=== PATIENT | female | born 1955 | race Two or more races ===

== ENCOUNTER → 2019-12-29 08:38 | Outpatient (BNVA) | payer MEDICARE, MEDICAID, SELFPAY | PROVIDERS: Visit Provider Hospitalist | DX: J45.40 Moderate persistent asthma, uncomplicated (principal) | CPT/HCPCS: 99214 ==

== ENCOUNTER 2020-01-18 09:25 | Outpatient (REF) | payer MEDICARE, MEDICAID, SELFPAY ==
--- NOTE | 2020-01-18 12:22 | PFT_ITS ---
FLOWS: FEV1 84% of predicted at 1.94 L. FVC 74% of predicted at 2.21 L. FEV1 to FVC ratio of 0.88. No bronchodilator response. LUNG VOLUMES: Total lung capacity 75% of predicted at 3.57 L. Residual volume 68% of predicted at 1.33 L. Slow vital capacity 79% of predicted at 2.23 L. Expiratory reserve volume 8% of predicted at 0.06 L. Diffusion capacity is normal. In comparison to pulmonary function test performed in October of 2018, FEV1 has been without significant changes; FVC has increased by 0.15 L; total lung capacity has increased by 0.69 L; residual volume has increased by 0.55 L; slow vital capacity has been without significant changes; expiratory reserve volume has been without significant changes; diffusion capacity has increased by 0.55 mL/minute/mmHg. IMPRESSION: Mild to moderate restrictive ventilatory defect with no bronchodilator response. This test result can be observed in lung parenchymal disease. Clinical correlation is suggested. MD SANDRA Reyes/ERMELINDAL / [id number]
== END 2020-01-18 09:26 | disposition home or self-care (01) ==
LOC: HO.RESP 09:25
PROVIDERS: Visit Provider Hospitalist
DX: J45.40 Moderate persistent asthma, uncomplicated (principal)
CPT/HCPCS: 94060; 94727; 94729

== ENCOUNTER 2020-05-29 11:51 | Outpatient (REF) | payer MEDICARE, MEDICAID, SELFPAY ==
--- NOTE | ~2020-05-29 | MM_ITS ---
EXAMINATION: MM SCREENING DIGITAL BREAST TOMOSYNTHESIS, BILATERAL CLINICAL INFORMATION: Screening. Asymptomatic. The lifetime risk of breast cancer based on the Tyrer-Cuzick Model is 4%. COMPARISON: Mammography: 09/03/2019, 08/18/2018, 01/08/2018 TECHNIQUE: Digital breast tomosynthesis is performed in both the craniocaudal and mediolateral oblique views along with computer-aided detection (CAD). Synthesized 2D images are generated from the tomosynthesis. FINDINGS: There are scattered areas of fibroglandular density (ACR BI-RADS breast composition Category b). There are no significant masses, abnormal calcifications, or other abnormalities. Parenchymal pattern is similar to prior studies. There are incidental intramammary nodes again seen posterior central right breast. The axilla and skin contours are unremarkable. MM/MM tomosynthesis screening BI IMPRESSION: No mammographic evidence of malignancy. ASSESSMENT: BI-RADS 2: Benign RECOMMENDATION: Routine annual mammography screening. This patient's information was entered into a reminder system with a target due date for their next mammogram.
== END 2020-05-29 11:52 | disposition home or self-care (01) ==
LOC: HO.MAMMO 11:51
PROVIDERS: PCP Registered Nurse Community Health; Visit Provider Registered Nurse Community Health
DX: Z12.31 Encounter for screening mammogram for malignant neoplasm of breast (principal)
CPT/HCPCS: 77063; 77067

== ENCOUNTER → 2020-09-25 09:01 | Outpatient (BNVA) | payer MEDICARE, MEDICAID, SELFPAY | PROVIDERS: PCP Registered Nurse Community Health; Visit Provider Hospitalist | DX: J30.9 Allergic rhinitis, unspecified (principal); J45.40 Moderate persistent asthma, uncomplicated | CPT/HCPCS: 99212 ==

== ENCOUNTER → 2020-10-12 09:26 | Outpatient (BNVA) | payer MEDICARE, MEDICAID, SELFPAY | PROVIDERS: PCP Registered Nurse Community Health; Referring Provider Registered Nurse Community Health; Visit Provider Nurse Practitioner Family | DX: Z12.11 Encounter for screening for malignant neoplasm of colon (principal); K21.9 Gastro-esophageal reflux disease without esophagitis | CPT/HCPCS: 99202 ==

== ENCOUNTER 2020-11-05 10:23 | Day surgery (SDC) | payer MEDICARE, MEDICAID, SELFPAY ==
[2020-10-29 13:22] VITALS: BMI 35.3
--- NOTE | 2020-11-02 08:40 | HO.ANESPROP2 ---
Documented by User: Alexia Love NP 11/02/20 12:57 HPI - Anesthesia Eval Consult details Narrative: 64yo F for Upper Endoscopy and Colonoscopy 06/2020 Cardiac visit - conditions stable PMFSH Active Problems Active Problems: All Active Problems (Updated 10/29/20 @ 13:18 by Miesha Narayan RN) Chronic allergic rhinitis (Acute) Asthma (Acute) Past Medical History Medical History (Updated 10/29/20 @ 13:18 by Miesha Narayan RN) Aortic valve insufficiency Asthma Carotid arterial disease Chronic allergic rhinitis GERD (gastroesophageal reflux disease) History of radioactive iodine thyroid ablation HTN (hypertension) Hyperlipidemia IFG (impaired fasting glucose) Leg pain Palpitations Pulmonary hypertension Sleep apnea Family History Family History (Updated 12/13/19 @ 14:30 by Amanda Dee, OMAR) Father No problems noted. Mother No problems noted. Surgical History Surgical History (Updated 10/29/20 @ 12:24 by Miesha Narayan RN) History of carpal tunnel surgery of right wrist History of tubal ligation Hx of hysterectomy Social History Social History (Updated 12/29/19 @ 09:02 by PEDRO Starkey) Are you a primary career development specialist to a significant other at home: No Do you presently have visiting nurse or other home services: No Patient Tobacco Use Status: Never used Tobacco Have you been hit, kicked, punched, or otherwise hurt by someone within the past year? If so, by whom?: No Are you DNR?: No Advance Directives: No Advance Directives Information Provided: No Advance Directives on File: No Recently lost weight without trying: No Eating poorly because of decreased appetite: No Nutrition Risks: No Nutritional Risk Patient : No Meds Allergies Allergy/AdvReac Type Severity Reaction Status Date / Time oxycodone [OXYCODONE] Allergy Severe N/V, HIVES Verified 11/05/20 10:53 penicillin G [PENICILLIN G] Allergy Severe THROAT Verified 11/05/20 10:53 TIGHTNESS acetaminophen [Percocet] Allergy Mild Rash Verified 11/05/20 10:53 Home Medications Medication Instructions Recorded Confirmed Last Taken Type diclofenac sodium 75 mg 75 mg PO BID 12/13/19 10/29/20 Unknown History tablet,delayed release ipratropium 20 mcg-albuterol 100 INHALATION 12/13/19 09/25/20 Unknown History mcg/actuation mist for inhalation triamcinolone acetonide 0.1 % 1 applic TOPICAL BID 12/13/19 10/29/20 Unknown History topical cream levothyroxine 50 mcg tablet 50 mcg PO DAILY 12/29/19 10/29/20 Unknown History omeprazole 20 mg capsule,delayed 20 mg PO DAILY 12/29/19 10/29/20 Unknown History release losartan 50 mg-hydrochlorothiazide 1 tab PO DAILY 09/25/20 10/29/20 Unknown History 12.5 mg tablet atorvastatin 20 mg tablet 20 mg PO DAILY 10/29/20 10/29/20 Unknown History diltiazem HCl 120 mg capsule,24 120 mg PO DAILY 10/29/20 10/29/20 Unknown History hr,extended release Exam Exam Date and Time: November 02, 2020 0840 Height,Weight and Vital Signs: Height 5 ft 2 in Weight 87.543 kg Documented by User: Pema Matute MD 11/05/20 10:57 [facility] Past Medical History Medical History (Updated 10/29/20 @ 13:18 by Miesha Narayan, ALEX) Aortic valve insufficiency Asthma Carotid arterial disease Chronic allergic rhinitis GERD (gastroesophageal reflux disease) History of radioactive iodine thyroid ablation HTN (hypertension) Hyperlipidemia IFG (impaired fasting glucose) Leg pain Palpitations Pulmonary hypertension Sleep apnea Family History Family History (Updated 12/13/19 @ 14:30 by Amanda Dee, OMAR) Father No problems noted. Mother No problems noted. Family history of problems with anesthesia: No Surgical History Surgical History (Updated 10/29/20 @ 12:24 by Miesha Narayan, RN) History of carpal tunnel surgery of right wrist History of tubal ligation Hx of hysterectomy History of Problems with Anesthesia: No Social History Social History (Updated 12/29/19 @ 09:02 by PEDRO Starkey) Are you a primary career development specialist to a significant other at home: No Do you presently have visiting nurse or other home services: No Patient Tobacco Use Status: Never used Tobacco Have you been hit, kicked, punched, or otherwise hurt by someone within the past year? If so, by whom?: No Are you DNR?: No Advance Directives: No Advance Directives Information Provided: No Advance Directives on File: No Recently lost weight without trying: No Eating poorly because of decreased appetite: No Nutrition Risks: No Nutritional Risk Patient : No Meds Allergies Allergy/AdvReac Type Severity Reaction Status Date / Time oxycodone [OXYCODONE] Allergy Severe N/V, HIVES Verified 11/05/20 10:53 penicillin G [PENICILLIN G] Allergy Severe THROAT Verified 11/05/20 10:53 TIGHTNESS acetaminophen [Percocet] Allergy Mild Rash Verified 11/05/20 10:53 Home Medications Medication Instructions Recorded Confirmed Last Taken Type diclofenac sodium 75 mg 75 mg PO BID 12/13/19 10/29/20 Unknown History tablet,delayed release ipratropium 20 mcg-albuterol 100 INHALATION 12/13/19 09/25/20 Unknown History mcg/actuation mist for inhalation triamcinolone acetonide 0.1 % 1 applic TOPICAL BID 12/13/19 10/29/20 Unknown History topical cream levothyroxine 50 mcg tablet 50 mcg PO DAILY 12/29/19 10/29/20 Unknown History omeprazole 20 mg capsule,delayed 20 mg PO DAILY 12/29/19 10/29/20 Unknown History release losartan 50 mg-hydrochlorothiazide 1 tab PO DAILY 09/25/20 10/29/20 Unknown History 12.5 mg tablet atorvastatin 20 mg tablet 20 mg PO DAILY 10/29/20 10/29/20 Unknown History diltiazem HCl 120 mg capsule,24 120 mg PO DAILY 10/29/20 10/29/20 Unknown History hr,extended release Exam Airway Mallampati Class: II TM Dist: >3cm Neck ROM: Full Denture: Upper and Lower Heart: rrr Lungs: cta Assessment and Plan Assessment Anesthesia Assessment: Anesthesia Plan Discussed and Chart Reviewed Final Anesthetic Review Family History of Problems with Anesthesia: No History of Problems with Anesthesia: No NPO: Yes ASA Class: III Final Preanesthetic Review: No Changes in Pt Med Stat and Consent Obtained/Reviewed Patient Risk: Intermediate Procedure Risk: Intermediate Anesthetic Plan Anesthetic Plan: MAC: Disposition: Standard PACU
[2020-11-05 10:56] VITALS: BP 131/51; PULSE 74; RESP 16; TEMP 36.7; O2SAT 99
[2020-11-05] MEDS: Lactated Ringers 1,000 ML 50 ML IVCONT (11:36)
--- NOTE | 2020-11-05 12:17 | MHC.SHP ---
Pre-Procedural Eval Section A Date of Service: 11/05/20 The patient is an INPATIENT: No Changes since office visit: Yes Patient answered all questions; No Cold of Flu in the past 2 weeks, No New Medical Problems and No Changes in Medication The History & Physical has been completed within 30 days and I have reviewed it.: Yes Section B Chief Complaint: Screening, GERD Allergies: Allergies Allergy/AdvReac Type Severity Reaction Status Date / Time oxycodone [OXYCODONE] Allergy Severe N/V, HIVES Verified 11/05/20 10:53 penicillin G [PENICILLIN G] Allergy Severe THROAT Verified 11/05/20 10:53 TIGHTNESS acetaminophen [Percocet] Allergy Mild Rash Verified 11/05/20 10:53 Plan I have reviewed the history and physical and performed a pertinent physical examination on my patient. No changes have occurred unless specified.
--- NOTE | 2020-11-05 12:21 | P.BOP_ITS ---
Brief Operative Note Date of Service: 11/05/20 Pre-op diagnosis: Colon cancer screening, GERD Post-op diagnosis: other (GERD, gastritis, diverticulosis) Procedure: FLEXIBLE TRANSORAL UPPER GASTROINTESTINAL ENDOSCOPY WITH BIOPSIES AND COLONOSCOPY TILL CECUM UPPER ENDOSCOPY Consent: Indications for the procedure and potential complications of bleeding, perforation, reaction to medications and missed diagnosis were discussed with the patient and informed consent was obtained. Instrument: Olympus GIF H 190 mid size upper endoscope Monitoring: Vital signs and clinical assessment, continuous EKG monitoring, Pulse oximetry, Carbon Dioxide monitoring and blood pressure monitoring were done throughout the procedure. Procedure: The patient was placed in the left lateral decubitis position and pre-procedure medications were administered and a bite block was placed. The endoscope was inserted into the mouth and advanced under direct vision to the third part of duodenum. A careful inspection was made as the upper endoscope was withdrawn including a retroflexed examination of the proximal stomach; Findings and interventions are described below. Findings: Larynx: Normal Esophagus: GE junction at 36 cms. No esophagitis or Morataya's. Stomach: Mild gastric erythema. Biopsies were obtained. Grade 2 flap valve on retroflexed examination of the cardia. Duodenum: Normal bulb and descending duodenum Intervention: Biopsies as noted above COLONOSCOPY PROCEDURE NOTE Consent: Indications for the procedure and potential complications of bleeding, perforation, reaction to medications and missed diagnosis were discussed with the patient and informed consent was obtained. Instrument: Olympus PCF H 190 L variable stiffness pediatric colonoscope Monitoring: Vital signs and clinical assessment, intermittent blood pressure monitoring, continuous EKG monitoring, Pulse oximetry and Carbon Dioxide monitoring were done throughout the procedure. Colon withdrawl time was 15 minutes. Procedure: The patient was placed in the left lateral decubitis position and pre-procedure medications were administered. After a digital rectal examination of the ano-rectum, the video colonoscope was inserted into the rectum and advanced through the colon to the cecum. The colonoscope was slowly withdrawn in a retrograde panoramic fashion and the colon mucosa was carefully examined including a retroflexed view of the rectum. Findings and interventions are described below. Procedure Difficulty: : Without difficulty Findings: Terminal Ileum: Not evaluated Cecum: Normal Ascending Colon: Normal Transverse Colon: Normal Descending Colon: Normal Sigmoid Colon: Moderate diverticulosis Rectum: Normal Ano-rectum: Moderate internal hemorrhoids Colon preparation: Good after copious irrigation. Impression and Post Procedure Diagnosis: Endoscopy Findings: ESOPHAGUS: No esophagitis or Morataya's STOMACH: Mild antral gastritis Colonoscopy Findings: No polyps were detected Moderate diverticulosis seen in the sigmoid colon Moderate hemorrhoids on retroflexed exam. Plan: Await pathology results Patient has an appointment on 11/27/20 in the GI Clinic with Emilia Boateng FNP- BC . Repeat Colonoscopy in 10 years if Family hx is negative. GERD and diverticulosis handouts were given in the discharge area Surgeon: Jocelyne Falcon MD Anesthesia: MAC (Zhou Silvestre CRNA) Was an Field Radio Technician used for this Procedure?: Yes Field Radio Technician: Marimar Gallardo Estimated blood loss (mL): 0 Pathology: other (A: GASTRIC ANTRUM BX R/O H PYLORI) Condition: stable Disposition: PACU
--- NOTE | 2020-11-05 12:23 | P.OP_ITS ---
Operative Note Operative Note Date of Service: 11/05/20 Narrative: Pre-op diagnosis:?Colon cancer screening, GERD Post-op diagnosis:?other (GERD, gastritis, diverticulosis) Procedure:? FLEXIBLE TRANSORAL UPPER GASTROINTESTINAL ENDOSCOPY WITH BIOPSIES AND COLONOSCOPY TILL CECUM UPPER ENDOSCOPY Consent:?Indications for the procedure and potential complications of bleeding, perforation, reaction to medications and missed diagnosis were discussed with the patient and informed consent was obtained. Instrument:?Olympus GIF H 190 mid size upper endoscope Monitoring: Vital signs and clinical assessment, continuous EKG monitoring, Pulse oximetry, Carbon Dioxide monitoring and blood pressure monitoring were done throughout the procedure. Procedure:?The patient was placed in the left lateral decubitis position and pre-procedure medications were administered and a bite block was placed. The endoscope was inserted into the mouth and advanced under direct vision to the third part of duodenum. A careful inspection was made as the upper endoscope was withdrawn including a retroflexed examination of the proximal stomach; Findings and interventions are described below. Findings: Larynx: Normal Esophagus:?GE junction at 36 cms.? No esophagitis or Morataya's. Stomach:?Mild gastric erythema. Biopsies were obtained. Grade 2 flap valve on retroflexed examination of the cardia. Duodenum:?Normal bulb and descending duodenum Intervention:?Biopsies as noted above COLONOSCOPY PROCEDURE NOTE Consent:?Indications for the procedure and potential complications of bleeding, perforation, reaction to medications and missed diagnosis were discussed with the patient and informed consent was obtained. Instrument:?Olympus PCF H 190 L variable stiffness pediatric colonoscope Monitoring:?Vital signs and clinical assessment, intermittent blood pressure monitoring, continuous EKG monitoring, Pulse oximetry and Carbon Dioxide monitoring were done throughout the procedure. Colon withdrawl time was 15 minutes. Procedure:?The patient was placed in the left lateral decubitis position and pre-procedure medications were administered. After a digital rectal examination of the ano-rectum, the video colonoscope was inserted into the rectum and advanced through the colon to the cecum. The colonoscope was slowly withdrawn in a retrograde panoramic fashion and the colon mucosa was carefully examined including a retroflexed view of the rectum. Findings and interventions are described below. Procedure Difficulty:?: Without difficulty Findings: Terminal Ileum: Not evaluated Cecum:? Normal Ascending Colon:??Normal Transverse Colon:??Normal Descending Colon:? Normal Sigmoid Colon:??Moderate diverticulosis Rectum:??Normal Ano-rectum:??Moderate internal hemorrhoids Colon preparation:? Good after copious irrigation. Impression and Post Procedure Diagnosis: Endoscopy Findings: ESOPHAGUS: No esophagitis or Morataya's STOMACH: Mild antral gastritis Colonoscopy Findings: No polyps were detected Moderate diverticulosis seen in the sigmoid colon Moderate hemorrhoids on retroflexed exam. Plan: Await pathology results Patient has an appointment on 11/27/20 in the GI Clinic with Emilia Boateng FNP- BC . Repeat Colonoscopy in 10 years if Family hx is negative. GERD and diverticulosis handouts were given in the discharge area Surgeon:?Jocelyne Falcon MD Anesthesia:?MAC (Zhou Silvestre CRNA) Was an Printed Circuit Board Panels Trimmer used for this Procedure?:?Yes Printed Circuit Board Panels Trimmer:?Marimar Gallardo Estimated blood loss (mL):?0 Pathology:?other (A: GASTRIC ANTRUM BX R/O H PYLORI) Condition:?stable Disposition:?PACU
[2020-11-05 13:16] VITALS: BP 108/58; PULSE 88; RESP 14; TEMP 36.8; O2SAT 97
[2020-11-05 13:30] VITALS: BP 116/54; PULSE 76; RESP 18; O2SAT 99
== END 2020-11-05 14:21 ==
LOC: HO.SSS 10:23
PROVIDERS: Visit Provider Internal Medicine Gastroenterology
PROC: (CPT 43239; principal; 2020-11-05 12:00)
DX: Z12.11 Encounter for screening for malignant neoplasm of colon (principal); K57.30 Diverticulosis of large intestine without perforation or abscess without bleeding; K64.8 Other hemorrhoids; K21.9 Gastro-esophageal reflux disease without esophagitis; K29.50 Unspecified chronic gastritis without bleeding; I27.20 Pulmonary hypertension, unspecified; I10 Essential (primary) hypertension; J45.909 Unspecified asthma, uncomplicated; G47.33 Obstructive sleep apnea (adult) (pediatric); E03.9 Hypothyroidism, unspecified; R73.01 Impaired fasting glucose; Z79.82 Long term (current) use of aspirin; Z79.899 Other long term (current) drug therapy; Z88.0 Allergy status to penicillin; Z88.8 Allergy status to other drugs, medicaments and biological substances
CPT/HCPCS: 43239; G0121; 88305; 88342

== ENCOUNTER → 2020-11-27 12:45 | Outpatient (BNVA) | payer MEDICARE, MEDICAID, SELFPAY | PROVIDERS: PCP Registered Nurse Community Health; Referring Provider Registered Nurse Community Health; Visit Provider Nurse Practitioner Family | DX: K21.9 Gastro-esophageal reflux disease without esophagitis (principal); K57.90 Diverticulosis of intestine, part unspecified, without perforation or abscess without bleeding; Z98.890 Other specified postprocedural states | CPT/HCPCS: 99212 ==

== ENCOUNTER → 2021-03-27 12:55 | Outpatient (BNVA) | payer MEDICARE, MEDICAID, SELFPAY | PROVIDERS: PCP Registered Nurse Community Health; Referring Provider Registered Nurse Community Health; Visit Provider Nurse Practitioner Family | DX: K21.9 Gastro-esophageal reflux disease without esophagitis (principal); K57.90 Diverticulosis of intestine, part unspecified, without perforation or abscess without bleeding | CPT/HCPCS: 99212 ==

== ENCOUNTER 2021-05-31 11:55 | Outpatient (REF) | payer MEDICARE, MEDICAID, SELFPAY ==
--- NOTE | ~2021-05-31 | MM_ITS ---
EXAMINATION: MM SCREENING DIGITAL BREAST TOMOSYNTHESIS, BILATERAL CLINICAL INFORMATION: Screening. Asymptomatic. The lifetime risk of breast cancer based on the Tyrer-Cuzick Model is 4.0%. COMPARISON: Mammography: May 29, 2020 and studies dating back to April 23, 2015 TECHNIQUE: Digital breast tomosynthesis is performed in both the craniocaudal and mediolateral oblique views along with computer-aided detection (CAD). Synthesized 2D images are generated from the tomosynthesis. Additional right exaggerated craniocaudal view performed. FINDINGS: There are scattered areas of fibroglandular density (ACR BI-RADS breast composition Category b). There are no significant masses, abnormal calcifications, or other abnormalities. MM/MM tomosynthesis screening BI IMPRESSION: There are no significant changes from prior study. ASSESSMENT: BI-RADS 1: Negative RECOMMENDATION: Routine annual mammography screening. This patient's information was entered into a reminder system with a target due date for their next mammogram.
== END 2021-05-31 11:56 | disposition home or self-care (01) ==
LOC: HO.MAMMO 11:55
PROVIDERS: PCP Registered Nurse Community Health; Visit Provider Registered Nurse Community Health
DX: Z12.31 Encounter for screening mammogram for malignant neoplasm of breast (principal)
CPT/HCPCS: 77063; 77067

== ENCOUNTER → 2021-06-11 09:40 | Outpatient (BNVA) | payer MEDICARE, MEDICAID, SELFPAY | PROVIDERS: PCP Registered Nurse Community Health; Visit Provider Hospitalist | DX: J30.9 Allergic rhinitis, unspecified (principal); J45.40 Moderate persistent asthma, uncomplicated | CPT/HCPCS: 99212 ==

== ENCOUNTER 2021-10-17 13:32 | Outpatient (REF) | payer MEDICARE, MEDICAID, SELFPAY ==
--- NOTE | ~2021-10-17 | MM_ITS ---
EXAMINATION: BONE DENSITOMETRY CLINICAL INDICATION: Menopause. COMPARISON: None (current study represents initial baseline exam). TECHNIQUE: Using a [place] DXA System (software version: 13.1) manufactured by [employer], dual-energy x-ray absorptiometry was performed of the lumbar spine and left hip. The images are of good technical quality. Summary results are attached. FINDINGS: AP SPINE L1-L4: BMD 0.931 g/cm2, Z-score -1.2, T-score -2.1, osteopenia. LEFT FEMUR, NECK: BMD 0.764 g/cm2, Z-score -1.0, T-score -2.0, osteopenia. LEFT FEMUR, TOTAL: BMD 0.825 g/cm2, Z-score -0.8, T-score -1.5, osteopenia. IDENTIFIED RISK FACTORS: Menopause, hysterectomy, history of fracture (adult), bilateral oophorectomy. HISTORY OF FRACTURE: Wrist. MEDICATIONS: Vitamin D. MM/XR DEXA axial skeleton IMPRESSION: 1. DIAGNOSIS: Osteopenia based on the lowest T-score value of -2.1 in the lumbar spine applying World Health Organization criteria. 2. 10-YEAR FRACTURE RISK PREDICTION, FRAX: Major osteoporotic fracture (clinical spine, forearm, hip or shoulder) 9.1%. Hip fracture 1.3%. 3. Treatment Recommendations: NOF guidelines recommend consideration for treatment in postmenopausal women and men age 50 and older presenting with the following: -A hip or vertebral (clinical or morphometric) fracture. -T-score less than or equal to -2.5 at the femoral neck or spine after appropriate evaluation to exclude secondary causes. -Low bone mass at the hip or spine and a 10-year fracture probability by FRAX of greater than or equal to 3% for hip fracture or greater than or equal to 20% for major osteoporotic fracture based on the [place] adapted WHO algorithm. 4. Other Recommendations: All treatment decisions require clinical judgment and consideration of individual patient factors, including patient preferences, comorbidities, previous drug use, risk factors not captured in the FRAX model (e.g. frailty, falls, vitamin D deficiency, increased bone turnover, interval significant decline in bone density) and possible under or overestimation of fracture risk by FRAX. Additional medical evaluation for secondary cause of low bone mineral density may be appropriate. FUTURE SCAN RECOMMENDATION: People with diagnosed cases of osteoporosis or at high risk for fracture should have regular bone mineral density tests. For patients eligible for Medicare, routine testing is allowed once every 2 years. The testing frequency can be increased to one year for patients who have rapidly progressing disease, those who are receiving or discontinuing medical therapy to restore bone mass, or have additional risk factors.
== END 2021-10-17 13:33 | disposition home or self-care (01) ==
LOC: HO.MAMMO 13:32
PROVIDERS: Visit Provider Registered Nurse Community Health
DX: Z13.820 Encounter for screening for osteoporosis (principal); Z78.0 Asymptomatic menopausal state
CPT/HCPCS: 77080

== ENCOUNTER 2022-04-25 09:30 | Outpatient (REF) | payer MEDICARE, MEDICAID, SELFPAY ==
--- NOTE | 2022-04-25 11:53 | PFT_ITS ---
Forced vital capacity 75%, FEV1 84%. FEV1/FVC ratio is 87. [id number] 112% and MVV is 75%. Post bronchodilator therapy, there is no significant change. Total lung capacity 71%. Residual volume 63%. Diffusion capacity 74% CONCLUSION: Mild restrictive pulmonary disorder. No obstructive airway disorder. No response to bronchodilator therapy. MD AURELIA Ferrari/ERMELINDAL / [id number]
== END 2022-04-25 09:31 | disposition home or self-care (01) ==
LOC: HO.RESP 09:30
PROVIDERS: PCP Registered Nurse; Visit Provider Hospitalist
DX: J45.40 Moderate persistent asthma, uncomplicated (principal)
CPT/HCPCS: 94060; 94727; 94729

== ENCOUNTER 2022-06-03 10:21 | Outpatient (REF) | payer MEDICARE, MEDICAID, SELFPAY ==
--- NOTE | ~2022-06-03 | MM_ITS ---
EXAMINATION: MM SCREENING DIGITAL BREAST TOMOSYNTHESIS, BILATERAL CLINICAL INFORMATION: Screening. Asymptomatic. The lifetime risk of breast cancer based on the Tyrer-Cuzick Model is 4%. COMPARISON: Multiple prior mammography, most recent 05/31/2021. TECHNIQUE: Digital breast tomosynthesis is performed in both the craniocaudal and mediolateral oblique views along with computer-aided detection (CAD). Synthesized 2D images are generated from the tomosynthesis. FINDINGS: There are scattered areas of fibroglandular density (ACR BI-RADS breast composition Category b). The left CC view shows interval asymmetry central breast 4.5 cm from the nipple. Patient will be recalled for additional imaging to exclude developing density. The remainder of the bilateral breasts demonstrate no significant changes from prior studies. There are no abnormal calcifications. The axilla and skin contours are unremarkable. MM/MM tomosynthesis screening BI IMPRESSION: Left: -Asymmetric density mid breast on CC view. Right: -No mammographic evidence of malignancy. ASSESSMENT: BI-RADS 0: Incomplete - Need Additional Imaging Evaluation RECOMMENDATION: 1. Additional views left breast (spot CC, rolled CC x2). 2. Targeted ultrasound if warranted after review of the additional views. 3. Radiology department staff will contact the patient for additional imaging. This patient's information was entered into a reminder system with a target due date for their next mammogram.
== END 2022-06-03 10:22 | disposition home or self-care (01) ==
LOC: HO.MAMMO 10:21
PROVIDERS: PCP Registered Nurse; Visit Provider Registered Nurse Community Health
DX: Z12.31 Encounter for screening mammogram for malignant neoplasm of breast (principal)
CPT/HCPCS: 77063; 77067

== ENCOUNTER 2022-07-09 12:51 | Outpatient (REF) | payer MEDICARE, MEDICAID, SELFPAY ==
--- NOTE | ~2022-07-09 | MM_ITS ---
EXAMINATION: MM DIAGNOSTIC DIGITAL BREAST TOMOSYNTHESIS, LEFT CLINICAL INFORMATION: Left breast asymmetry. COMPARISON: Mammography: 06/03/2022 and studies dating back to 04/23/2015. TECHNIQUE: Digital breast tomosynthesis is performed. 2D images are generated from the tomosynthesis. The following views are obtained: Rolled left breast craniocaudal views, 90-degree lateral view, and spot compression left craniocaudal view. FINDINGS: There are scattered areas of fibroglandular density (ACR BI-RADS breast composition Category b). Additional views do not demonstrate any persistent abnormality with imaging appearing similar to prior study of 04/23/2015. Results are provided to the patient at time of visit by the technologist. MM/MM tomosynthesis added views L IMPRESSION: No mammographic evidence of malignancy. ASSESSMENT: BI-RADS 1: Negative. RECOMMENDATION: Routine annual mammography screening due in 12 months. This patient's information was entered into a reminder system with a target due date for their next mammogram.
== END 2022-07-09 12:52 | disposition home or self-care (01) ==
LOC: HO.MAMMO 12:51
PROVIDERS: PCP Registered Nurse; Visit Provider Registered Nurse
DX: N64.89 Other specified disorders of breast (principal)
CPT/HCPCS: 77061; 77065

== ENCOUNTER → 2022-08-01 12:14 | Outpatient (BNVA) | payer MEDICARE, MEDICAID, SELFPAY | PROVIDERS: PCP Registered Nurse; Visit Provider Hospitalist | DX: Z23 Encounter for immunization (principal); J45.40 Moderate persistent asthma, uncomplicated; J30.9 Allergic rhinitis, unspecified | CPT/HCPCS: 90471; 90677; 99212 ==

== ENCOUNTER 2022-08-04 09:34 | Outpatient (REF) | payer MEDICARE, MEDICAID, SELFPAY ==
--- NOTE | ~2022-08-04 | XR_ITS ---
EXAMINATION: XR CHEST CLINICAL INFORMATION: Lung disorders COMPARISON: 03/05/2019 TECHNIQUE: 2 views of the chest were obtained. FINDINGS: No significant abnormality is noted involving the heart, lungs, mediastinum, bony thorax or soft tissues. XR/XR chest 2V IMPRESSION: Unremarkable examination.
== END 2022-08-04 09:35 | disposition home or self-care (01) ==
LOC: HO.XRAY 09:34
PROVIDERS: PCP Internal Medicine; Visit Provider Hospitalist
DX: J98.4 Other disorders of lung (principal)
CPT/HCPCS: 71046

== ENCOUNTER 2023-01-30 12:44 | Outpatient (AMB) | payer OTHER, SELFPAY ==
--- NOTE | 2023-01-30 12:49 | A.OFFVIS_ITS ---
Intake Vital Signs 01/30/23 12:55 Weight 186 lb BP 136/78 Pulse 60 Pulse Oximetry (%) 97 Intake Visit Reasons: copd Soda Dialyzer Required: No Allergies oxycodone [OXYCODONE] Allergy (Severe, Verified 01/30/23 13:13) N/V, HIVES penicillin G [PENICILLIN G] Allergy (Severe, Verified 01/30/23 13:13) THROAT TIGHTNESS acetaminophen [Percocet] Allergy (Mild, Verified 01/30/23 13:13) Rash HPI HPI Comments History of Present Illness Details The patient is a 67-year-old woman with a known history of asthma and chronic rhinitis. She has been complaining of some shortness of breath and chest congestion. Kncv-ya-akwdkiko severity. Does respond to her respiratory therapy at this time. She was supposed to have allergy testing, but, there are not available. During that initial laboratory data she did have elevations in her IgG in addition to her IgE and IgA Antibodies and she also had evidence of thrombocytopenia. Will plan to recheck does laboratories again. Otherwise she is responding well to the current respiratory regimen. 09/25/2020 the patient is here for pulwinifred guerrero follow-up visit overall she is doing better at this time. She did develop COVID-19 in January 2020. She developed significant headache and fatigue. Her symptoms subsided. Her respiratory status was not significantly worsen. In the meantime we did review her blood work demonstrating significant elevations in the IgE back in 2018 consistent with significant allergies. It appears that her allergies is usually worse in the springtime. She only has a rescue inhaler. At this point she does not need any maintenance respiratory therapy. She does take allergy medication. Clinically the patient is doing well this time and I do feel strongly about starting maintenance therapy. However, I will have her come the springtime when usually is flaring we can decide how to further optimize his respiratory regimen. 06/11/2021 the patient is here for a pulmonary follow-up visit. Overall she continues to do well on the current regimen. She has not required any prednisone or any antibiotics for respiratory issues. The patient does have allergies and her symptoms usually worse in the summertime. Therefore, she has any issues then she will call for any additional recommendations. In the meantime she seems to be doing well on the singular. She does not use any maintenance inhalers. She should have a short-acting beta agonist such as Ventolin available. I will make sure she has that when available. She was using Combivent but it does not appear to be as effective specially since she has a hard time with the set up. The patient will continue with her allergy medications specially going to the spring and summer. Then after that she can wean herself off as needed. The patient will follow-up in a year's time with a chest x-ray and pulmonary function studies. However if she has any issues prior to that she has call for an appointment. 08/01/2022 the patient is here for pulmon kaylee follow-up visit. The patient will more. She does have increased allergies. Complaining of nasal congestion also itchy eyes. Has been using her allergy medication. In addition to that she has rescue inhaler. She has used it, but partially helpful. Back in January she was fairly sick with a asthma exacerbation. The patient does not have a nebulizer. At this point she will benefit from a nebulizer. Will prescribe 1 and provide 1 the office. She can use the nebulizer twice a day. 01/30/2023 the patient is here for a pulmonary follow-up visit. She has been complaining of worsening chest tightness and wheezing. She is been using her rescue inhaler several times a day. The patient is not on a maintenance inhaler. The patient is open to trying Symbicort. She can use it twice a day and then when she is better she can even titrated down to just as needed. The patient also has been on Singulair which she should continue. Back in July 2022 the patient did have a chest x-ray which was without any acute disease. This is reassuring. She will continue with the respiratory medications in addition to starting the Symbicort. Will follow-up in 6 months. If she has any worsening symptoms prior to that she will call the office for an earlier assessment. [facility] Medical History (Updated 08/01/22 @ 13:00 by Bogdan Frazier MD) Chronic restrictive lung disease Hypothyroidism History of COVID-19 (~01/2020) Obesity Obstructive sleep apnea Diverticulosis Leg pain HTN (hypertension) Palpitations GERD (gastroesophageal reflux disease) Aortic valve insufficiency IFG (impaired fasting glucose) Carotid arterial disease Hyperlipidemia Pulmonary hypertension History of radioactive iodine thyroid ablation Chronic allergic rhinitis Asthma Surgical History (Updated 06/11/21 @ 12:55 by Karla Wilson PA-C) History of total hysterectomy History of esophagogastroduodenoscopy (EGD) (~2020) History of colonoscopy (~2020) History of carpal tunnel surgery of right wrist (~2013) History of tubal ligation (~1986) Family History Father No problems noted. Mother No problems noted. Social History Are you a primary memory care program director to a significant other at home: No Do you presently have visiting nurse or other home services: No Patient Tobacco Use Status: Never used Tobacco Review of Systems Const Denies night sweats ENT Denies change in voice, Denies lip swelling, Denies mouth pain, Reports nasal congestion, Reports nasal discharge and Denies tongue swelling Card Denies chest pain Resp Reports cough GI Denies abdominal pain Musc Denies no additional complaints Neuro Denies Neuro-related abnormal movements Psych Denies no additional complaints Feliz/Lymph Denies easy bleeding and Denies lymphadenopathy Aller/Immun Denies lip swelling and Denies tongue swelling Physical Exam Vital Signs: Last Vital Signs Pulse 60 01/30/23 12:55 BP 136/78 01/30/23 12:55 Pulse Ox 97 01/30/23 12:55 Const General: alert Neck Neck: Yes normal visual inspection, Yes full ROM and Yes no lymphadenopathy Chest Chest palpation & inspection: normal inspection of the chest Resp Effort & Inspection: normal respiratory effort Auscultation: diminished lung sounds Cardio Rate: regular rate Rhythm: regular rhythm Heart sounds: S1 normal heart sound present and S2 normal heart sound present GI Palpation (GI): Soft to palpation and nontender Auscultation: normal bowel sounds Skin General skin exam: rashes and/or lesions noted Office Procedures Flu Questionnaire Does the patient have a severe egg allergy?: No Does the patient have severe life threatening allergies?: No Does the patient have a fever or illness today?: No Has the patient ever had Guillain-[place] Syndrome?: No Has the patient ever had any past reaction to a flu shot?: No Immunizations flu vacc [id number] 6mos up(PF) 60 mcg(15 mcgx4)/0.5 mL IM syringe Performing Provider: Bogdan Frazier MD Performing Location: [facility] Administered by: Bogdan Frazier MD on 01/30/23 13:17 Dose Route Admin Location Dispensed Lot Number Expiration Date NDC Gameplay Engineer 0.5 mL IM Left Deltoid 0.5 mL [id number] 09/13/23 79835-288-74 [employer] VIS Given Date VIS Provided VIS Publication Date 01/30/23 Single Vaccine 20 Eligibility Eligibility Date Funding Source Not [facility] Eligible 01/30/23 Private Assessment & Plan Assessment & Plan (1) Chronic allergic rhinitis: Code(s): J30.9 - Allergic rhinitis, unspecified (2) Asthma: Comment: (Moderate persistent asthma, uncomplicated) Code(s): J45.909 - Unspecified asthma, uncomplicated Qualifiers: Asthma complication type: uncomplicated Asthma persistence: persistent Asthma severity: moderate Qualified Code(s): J45.40 - Moderate persistent asthma, uncomplicated Plan THIAGO as needed start Symbicort Continue fluticasone nasal spray Continue Singulair and Claritin Flu vaccine Follow-up in 6 year Orders: Orders Influenza [id number] Immunization 01/30/23 Z23 - Encounter for immunization Medications: New budesonide-formoterol 160-4.5 mcg/actuation (Symbicort) 2 puffs inhalation BID 30 days 10.2 grams 11RF J44.89 - Other specified chronic obstructive pulmonary disease Refilled albuterol sulfate 90 mcg/actuation 2 inhalations inhalation Q6H 30 days PRN 18 grams 12RF shortness of breath or wheezing J44.9 - Chronic obstructive pulmonary disease, unspecified albuterol sulfate 2.5 mg (3 mL) inhalation Q6H 30 days PRN 180 mL 11RF shortness of breath or wheezing J45.40 - Moderate persistent asthma, uncomplicated montelukast 10 mg PO BEDTIME 30 days 30 tabs 11RF Coding Level of Care Code Est Pt Level 4 (78832) Diagnoses Chronic allergic rhinitis J30.9 Moderate persistent asthma without complication J45.40 Asthma complication type: uncomplicated Asthma persistence: persistent Asthma severity: moderate Time Spent (min) 16
[2023-01-30 12:55] VITALS: BP 136/78; PULSE 60; O2SAT 97
== END 2023-01-30 13:13 | disposition home or self-care (01) ==
PROVIDERS: PCP Internal Medicine; Visit Provider Hospitalist
DX: J30.9 Allergic rhinitis, unspecified (principal); J45.40 Moderate persistent asthma, uncomplicated
CPT/HCPCS: 99214

== ENCOUNTER → 2023-01-30 12:44 | Outpatient (BNVA) | payer OTHER, SELFPAY | PROVIDERS: PCP Internal Medicine; Visit Provider Hospitalist | DX: Z23 Encounter for immunization (principal); J45.40 Moderate persistent asthma, uncomplicated; J30.9 Allergic rhinitis, unspecified | CPT/HCPCS: 90471; 90686; 99212 ==

== ENCOUNTER 2023-04-01 10:07 | Outpatient (REF) | payer OTHER, SELFPAY ==
[2023-04-01 11:26] LABS: MANUAL DIFF FLAG NO
[2023-04-01 11:28] LABS: Basophils Percent Auto 0.8 % (0-2); Eosinophils Absolute Auto 0.1 X10*3/uL (0.0-0.4); Eosinophils Percent Auto 2.5 % (0-4); Hematocrit 38.8 % (37.0-47.0); Imm Gran Abs Auto 0.02 X10*3/uL (0.00-0.03); Imm Gran Pct Auto 0.4 % (0.0-0.4); Lymphocytes Absolute Auto 1.4 X10*3/uL (1.2-4.9); Mean Corpuscular HGB Conc 33.5 g/dl (31.0-35.0); Mean Corpuscular Hemoglobin 31.9 pg (27.0-33.0); Mean Corpuscular Volume 95.1 fL (80.0-98.0); Mean Platelet Volume 11.1 fL (9.4-12.3); Monocytes Absolute Auto 0.3 X10*3/uL (0.1-1.2); Monocytes Percent Auto 5.6 % (2-11); Neutrophils Absolute Auto 3.2 x10*3/uL (2.0-8.3); Neutrophils Percent Auto 62.7 % (45-73); Platelet Count 171 X10*3/uL (160-400); Red Blood Count 4.08 X10*6/uL (4.20-5.50); White Blood Count 5.1 X10*3/uL (4.8-10.8)
[2023-04-01 11:40] LABS: Estimated Average Glucose 111 mg/dL; Hemoglobin A1c % 5.5 % (<6.0)
[2023-04-01 12:10] LABS: Alanine Aminotransferase 17 U/L (0-31); Albumin Level 4.1 g/dL (3.5-5.0); Alkaline Phosphatase 104 U/L (39-117); Anion Gap 13 (12-20); Aspartate Amino Transferase 21 U/L (5-31); Bilirubin Total 0.4 mg/dL (0.0-1.0); Blood Urea Nitrogen 18 mg/dL (9-16); Calcium 9.7 mg/dL (8.4-10.2); Carbon Dioxide 28 mmol/L (22-29); Chloride 101 mmol/L (96-108); Cholesterol 208 mg/dL (<200); Estimated Glomerular Filt Rate > 60; Glucose Random 103 mg/dL (60-115); HDL Cholesterol 51 mg/dL (>40); LDL Cholesterol Calculated 140 mg/dL (<100); Potassium 3.9 mmol/L (3.3-5.1); Sodium 138 mmol/L (135-145); Total Protein 8.2 g/dL (6.5-8.0); Triglycerides 87 mg/dL (<150)
== END 2023-04-01 10:08 | disposition home or self-care (01) ==
LOC: HO.HHCL 10:07
PROVIDERS: Visit Provider Student in an Organized Health Care Education/Training Program
DX: Z00.00 Encounter for general adult medical examination without abnormal findings (principal); E78.5 Hyperlipidemia, unspecified; D69.6 Thrombocytopenia, unspecified
CPT/HCPCS: 36415; 80053; 80061; 83036; 85025

== ENCOUNTER 2023-07-13 09:52 | Outpatient (REF) | payer OTHER, SELFPAY | END 2023-07-13 09:53 | disposition home or self-care (01) | LOC: HO.MAMMO 09:52 | PROVIDERS: PCP Student in an Organized Health Care Education/Training Program; Visit Provider Student in an Organized Health Care Education/Training Program | DX: Z12.31 Encounter for screening mammogram for malignant neoplasm of breast (principal) | CPT/HCPCS: 77063; 77067 ==

== ENCOUNTER → 2023-07-13 10:30 | Outpatient (BNV) | payer OTHER, SELFPAY | PROVIDERS: PCP Student in an Organized Health Care Education/Training Program; Visit Provider Radiology Diagnostic Radiology | DX: Z12.31 Encounter for screening mammogram for malignant neoplasm of breast (principal) | CPT/HCPCS: 77063; 77067 ==

== ENCOUNTER 2023-08-03 12:40 | Outpatient (AMB) | payer OTHER, SELFPAY ==
--- NOTE | 2023-08-03 13:12 | A.OFFVIS_ITS ---
Vital Signs 08/03/23 13:13 Height 5 ft 2 in Weight 190 lb BMI 34.7 Pulse 57 Pulse Source Pulse Oximeter Pulse Oximetry (%) 98 Oxygen Delivery Method Room Air Intake Visit Reasons: copd Merchandise Flow Associate Required: No Allergies oxycodone [OXYCODONE] Allergy (Severe, Verified 08/03/23 13:14) N/V, HIVES penicillin G [PENICILLIN G] Allergy (Severe, Verified 08/03/23 13:14) THROAT TIGHTNESS acetaminophen [Percocet] Allergy (Mild, Verified 08/03/23 13:14) Rash HPI Comments Details: The patient is a 67-year-old woman with a known history of asthma and chronic rhinitis. She has been complaining of some shortness of breath and chest congestion. Lvzm-kg-vmevfjaf severity. Does respond to her respiratory therapy at this time. She was supposed to have allergy testing, but, there are not available. During that initial laboratory data she did have elevations in her IgG in addition to her IgE and IgA Antibodies and she also had evidence of thrombocytopenia. Will plan to recheck does laboratories again. Otherwise she is responding well to the current respiratory regimen. 09/25/2020 the patient is here for pulmonary follow-up visit overall she is doing better at this time. She did develop COVID-19 in January 2020. She developed significant headache and fatigue. Her symptoms subsided. Her respiratory status was not significantly worsen. In the meantime we did review her blood work demonstrating significant elevations in the IgE back in 2018 consistent with significant allergies. It appears that her allergies is usually worse in the springtime. She only has a rescue inhaler. At this point she does not need any maintenance respiratory therapy. She does take allergy medication. Clinically the patient is doing well this time and I do feel strongly about starting maintenance therapy. However, I will have her come the springtime when usually is flaring we can decide how to further optimize his respiratory regimen. 06/11/2021 the patient is here for a pulmonary follow-up visit. Overall she continues to do well on the current regimen. She has not required any prednisone or any antibiotics for respiratory issues. The patient does have allergies and her symptoms usually worse in the summertime. Therefore, she has any issues then she will call for any additional recommendations. In the meantime she seems to be doing well on the singular. She does not use any maintenance inhalers. She should have a short-acting beta agonist such as Ventolin available. I will make sure she has that when available. She was using Combivent but it does not appear to be as effective specially since she has a hard time with the set up. The patient will continue with her allergy medications specially going to the spring and summer. Then after that she can wean herself off as needed. The patient will follow-up in a year's time with a chest x-ray and pulmonary function studies. However if she has any issues prior to that she has call for an appointment. 08/01/2022 the patient is here for pulmonary follow-up visit. The patient will more. She does have increased allergies. Complaining of nasal congestion also itchy eyes. Has been using her allergy medication. In addition to that she has rescue inhaler. She has used it, but partially helpful. Back in January she was fairly sick with a asthma exacerbation. The patient does not have a nebul izer. At this point she will benefit from a nebulizer. Will prescribe 1 and provide 1 the office. She can use the nebulizer twice a day. 01/30/2023 the patient is here for a pulmonary follow-up visit. She has been complaining of worsening chest tightness and wheezing. She is been using her rescue inhaler several times a day. The patient is not on a maintenance inhaler. The patient is open to trying Symbicort. She can use it twice a day and then when she is better she can even titrated down to just as needed. The patient also has been on Singulair which she should continue. Back in July 2022 the patient did have a chest x-ray which was without any acute disease. This is reassuring. She will continue with the respiratory medications in addition to starting the Symbicort. Will follow-up in 6 months. If she has any worsening symptoms prior to that she will call the office for an earlier assessment. 08/03/2023 the patient is here for pulmonary follow-up visit. Overall the p atient has been doing well. Denies any significant wheezing or significant shortness breath. She does have Symbicort. Symbicort has been very affecting beneficial. She does use it regularly. She has not had to use her rescue inhaler. She is also using the Singulair and Zyrtec. Sometimes she does take as needed. We did look at her last chest x-ray that she had back about a year ago. It is seems that her lung volumes are decreased left more than right. Some crowding of the vessels. Otherwise no acute disease. Will go ahead and repeat her chest x-ray next year specially if she is doing well she can wait till then. She should start working on deep breathing exercises. If she does develop worsening respiratory symptoms she can always get the x-ray sooner. She will continue with the current respiratory therapy will follow-up in the spring after the x-ray. [facility] Medical History (Updated 08/01/22 @ 13:00 by Bogdan Frazier MD) Chronic restrictive lung disease Hypothyroidism History of COVID-19 (~01/2020) Obesity Obstructive sleep apnea Diverticulosis Leg pain HTN (hypertension) Palpitations GERD (gastroesophageal reflux disease) Aortic valve insufficiency IFG (impaired fasting glucose) Carotid arterial disease Hyperlipidemia Pulmonary hypertension History of radioactive iodine thyroid ablation Chronic allergic rhinitis Asthma Surgical History (Updated 06/11/21 @ 12:55 by Karla Wilson PA-C) History of total hysterectomy History of esophagogastroduodenoscopy (EGD) (~2020) History of colonoscopy (~2020) History of carpal tunnel surgery of right wrist (~2013) History of tubal ligation (~1986) Family History Father No problems noted. Mother No problems noted. Social History Are you a primary rn urgent care to a significant other at home: No Do you presently have visiting nurse or other home services: No Patient Tobacco Use Status: Never used Tobacco Review of Systems Const Denies night sweats ENT Denies change in voice, Denies lip swelling, Denies mouth pain, Reports nasal congestion, Reports nasal discharge and Denies tongue swelling Card Denies chest pain Resp Reports cough GI Denies abdominal pain Musc Denies no additional complaints Neuro Denies Neuro-related abnormal movements Psych Denies no additional complaints Feliz/Lymph Denies easy bleeding and Denies lymphadenopathy Aller/Immun Denies lip swelling and Denies tongue swelling Physical Exam Vital Signs: Last Vital Signs Pulse 57 08/03/23 13:13 Pulse Ox 98 08/03/23 13:13 Oxygen Delivery Method Room Air 08/03/23 13:13 BMI result Body Mass Index 34.7 Const General: alert Neck Neck: Yes normal visual inspection, Yes full ROM and Yes no lymphadenopathy Chest Chest palpation & inspection: normal inspection of the chest Resp Effort & Inspection: normal respiratory effort Auscultation: diminished lung sounds Cardio Rate: regular rate Rhythm: regular rhythm Heart sounds: S1 normal heart sound present and S2 normal heart sound present GI Palpation (GI): Soft to palpation and nontender Auscultation: normal bowel sounds Skin General skin exam: rashes and/or lesions noted Assessment & Plan Assessment & Plan (1) Chronic allergic rhinitis: Code(s): J30.9 - Allergic rhinitis, unspecified Category: Medical (2) Asthma: Comment: (Moderate persistent asthma, uncomplicated) Code(s): J45.909 - Unspecified asthma, uncomplicated Category: Medical Qualifiers: Asthma complication type: uncomplicated Asthma persistence: persistent Asthma severity: moderate Qualified Code(s): J45.40 - Moderate persistent asthma, uncomplicated Plan THIAGO as needed continue Symbicort Continue Singulair and Claritin as needed CXR Follow-up in 12 months Orders: Orders XR chest 2V Today J98.4 - Other disorders of lung Coding Level of Care Code Est Pt Level 4 (95766) Diagnoses Chronic allergic rhinitis J30.9 Moderate persistent asthma without complication J45.40 Asthma complication type: uncomplicated Asthma persistence: persistent Asthma severity: moderate Time Spent (min) 16
[2023-08-03 13:13] VITALS: PULSE 57; O2SAT 98; BMI 34.7
== END 2023-08-03 13:27 | disposition home or self-care (01) ==
PROVIDERS: PCP Internal Medicine; Visit Provider Hospitalist
DX: J30.9 Allergic rhinitis, unspecified (principal); J45.40 Moderate persistent asthma, uncomplicated
CPT/HCPCS: 99214

== ENCOUNTER → 2023-08-03 12:40 | Outpatient (BNVA) | payer OTHER, SELFPAY | PROVIDERS: PCP Internal Medicine; Visit Provider Hospitalist | DX: J45.40 Moderate persistent asthma, uncomplicated (principal); J30.9 Allergic rhinitis, unspecified; Z86.16 Personal history of COVID-19 | CPT/HCPCS: 99212 ==

== ENCOUNTER 2024-01-11 09:42 | Outpatient (REF) | payer OTHER, SELFPAY ==
[2024-01-11 11:38] LABS: Hematocrit 37.3 % (37.0-47.0); Hemoglobin 12.6 g/dl (12.0-16.0); Mean Corpuscular HGB Conc 33.8 g/dl (31.0-35.0); Mean Corpuscular Hemoglobin 32.6 pg (27.0-33.0); Mean Corpuscular Volume 96.4 fL (80.0-98.0); Mean Platelet Volume 11.2 fL (9.4-12.3); Platelet Count 145 X10*3/uL (160-400); Red Blood Count 3.87 X10*6/uL (4.20-5.50); White Blood Count 5.1 X10*3/uL (4.8-10.8)
[2024-01-11 12:05] LABS: Alanine Aminotransferase 22 U/L (0-31); Alkaline Phosphatase 99 U/L (39-117); Anion Gap 9 (12-20); Aspartate Amino Transferase 30 U/L (5-31); Bilirubin Total 0.4 mg/dL (0.0-1.0); Blood Urea Nitrogen 22 mg/dL (9-16); Calcium 9.2 mg/dL (8.4-10.2); Carbon Dioxide 28 mmol/L (22-29); Chloride 104 mmol/L (96-108); Cholesterol 133 mg/dL (<200); Estimated Glomerular Filt Rate > 60; Glucose Random 103 mg/dL (60-115); HDL Cholesterol 52 mg/dL (>40); LDL Cholesterol Calculated 65 mg/dL (<100); Potassium 4.2 mmol/L (3.3-5.1); Sodium 137 mmol/L (135-145); Total Protein 7.6 g/dL (6.5-8.0); Triglycerides 80 mg/dL (<150)
== END 2024-01-11 09:43 | disposition home or self-care (01) ==
LOC: HO.HHCL 09:42
PROVIDERS: Visit Provider Student in an Organized Health Care Education/Training Program
DX: D69.6 Thrombocytopenia, unspecified (principal); E78.5 Hyperlipidemia, unspecified
CPT/HCPCS: 36415; 80053; 80061; 85027

== ENCOUNTER 2024-06-14 09:23 | Outpatient (REF) | payer OTHER, SELFPAY ==
--- NOTE | ~2024-06-14 | XR_ITS ---
CLINICAL HISTORY: J98.4 - Other disorders of lung 2 view chest x-ray Comparison: CR/SR - XR CHEST 2V - 08/04/22 10:01 EDT Findings: No consolidation or effusion. Normal size heart. No acute fracture. IMPRESSION: 1. No acute findings. This document has been electronically signed by: Leatha Wells MD on 06/14/2024 15:59:33
--- OUTSIDE RECORDS SUMMARY | 2024-06-14 10:34 | XMS_ITS | Continuity of Care Document ---
Author Organization [facility] Address [address] [place] [address] Phone [phone] Care Team Providers Care Web Development Instructor Name Role Phone Rabia Mackzman Kathryn Care Team Information R eceiver [phone] Problems Active Problems Provider Date Graves' disease Brandon Jose M.D. Onset: 0 10/23/2021 Social History Type Date Description Comments Sex Unknown Lives With Spouse Lives With Son ETOH Use Never used alcohol Tobacco Use Start: Unknown Patient has never smoked Allergies and adverse reactions Active Allergies Criticality Reaction Severity Comments Date Percocet Unable to assess criticality 10/23/2021 Penicillins Unable to assess criticality 10/23/2021 Medications Active Medications SIG Qnty Indications Order ing Provider Date Albuterol Sulfate ICC585(90Base) mcg/Act Aerosol Please See Attached For Detailed Directions Bogdan Frazier Levothyroxine [id number] Tablets 1 tab by mouth daily 90tabs Brandon Jose M.D. Atorvastatin Apbfllz20iw Tablets [place] Latrice Table[place] as 1 PO Daily Jeannette Brumfield Montelukast [id number] Tablets [place] Latrice Tableta [place] as Al Acostarse Bogdan Frazier Edtsspywwg16se Tablets [place] Latrice Table[place] as Bogdan Frazier Vital Signs Date Vital Result Comment 06/08/2024 1:11pm BP Systolic 110 mmHg BP Diastolic 70 mmHg Heart Rate 72 /min Results Test Acquired Date Facility Test Result H/L Range N ote TSH Rfx on Abnormal to Free T4 06/08/2024 [facility] TSH RFX On Abnormal To Free T4 4.640 uIU/mL High 0.450-4.50 0 T4,Free (Direct) 1.01 ng/dL 0.82-1.77 TSH+Free T4 12/11/2023 [facility] TSH 4.430 uIU/mL 0.450-4.50 0 T4,Free(Direc t) 1.08 ng/dL 0.82-1.77 TSH RFX On Abnormal To Free T4 06/12/2023 [facility] TSH RFX On Abnormal To Free T4 <pending> TSH Rfx on Abnormal to Free T4 06/09/2023 [facility] TSH RFX On Abnormal To Free T4 5.410 uIU/mL High 0.450-4.50 0 T4,Free (Direct) 1.08 ng/dL 0.82-1.77 TSH With Reflex To FT4 2022 [facility] TSH With Reflex To FT4 3.64 uIU/mL (0.4-4.2) TSH With Reflex To FT4 05/23/2022 [facility] TSH With Reflex To FT4 3.72 uIU/mL (0.4-4.2) TSH With Reflex To FT4 10/23/2021 [facility] TSH With Reflex To FT4 4.96 uIU/mL High (0.4-4.2) Free T4 10/23/2021 [facility] Free T4 1.02 ng/dL (0.70-1.80 ) Medical Devices Description No Information Available Encounters Type Date Location Provider Dx Diagnosis Office Visit 06/08/2024 1:15p Main Office Brandon Jose M.D. 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 06/08/2024 E05.00 Graves' disease Brandon calix M.D. Plan of Treatment Future Appointment(s):* 12/13/2024 1:15 pm - Brandon Jose M.D. at Main Office 12/11/2023 - Brandon Jose M.D.* E03.9 Hypothyroidism Functional Status Description No Information Available Mental Status Description No Information Available Referrals Description No Information Available
== END 2024-06-14 09:24 | disposition home or self-care (01) ==
LOC: HO.XRAY 09:23
PROVIDERS: PCP Student in an Organized Health Care Education/Training Program; Visit Provider Hospitalist
DX: J98.4 Other disorders of lung (principal)
CPT/HCPCS: 71046

== ENCOUNTER → 2024-06-14 09:29 | Outpatient (BNV) | payer OTHER, SELFPAY | PROVIDERS: PCP Student in an Organized Health Care Education/Training Program; Visit Provider Radiology Diagnostic Radiology | DX: J98.4 Other disorders of lung (principal) | CPT/HCPCS: 71046 ==

== ENCOUNTER 2024-06-30 09:43 | Outpatient (REF) | payer OTHER, SELFPAY ==
--- NOTE | ~2024-06-30 | XR_ITS ---
EXAMINATION: XR HAND 3 VIEWS BILATERAL HISTORY: pt with bilateral hand pain , joint swelling COMPARISON: There are no prior studies available for comparison. FINDINGS: Six views of the bilateral hands are submitted. The bones are osteopenic. There is no fracture or dislocation. There is mild osteoarthritis of the DIP joints most prominently involving the bilateral middle fingers. The soft tissues are unremarkable. XR/XR Hand Bilat min 3v IMPRESSION: Osteopenia. Mild osteoarthritis of the DIP joints. Electronically signed by: Chemo Montes MD 06/30/2024 12:05 PM EDT
--- OUTSIDE RECORDS SUMMARY | 2024-06-30 11:10 | XMS_ITS | Continuity of Care Document ---
Author Organization [facility] Address [address] [place] [address] Phone [phone] Care Team Providers Care Chairman President And Chief Executive Officer Name Role Phone Rabia Mackzman Kathryn Care Team Information R eceiver [phone] Problems Active Problems Provider Date Graves' disease [...] Indications Order ing Provider Date Albuterol Sulfate ECY678(90Base) mcg/Act Aerosol Please See Attached For Detailed Directions Bogdan Frazier Levothyroxine Mtzacc85wyz Tablets 1 tab by mouth daily 90tabs Brandon Jose M.D. Atorvastatin Izdvphs26ao Tablets [place] Latrice Table[place] as 1 PO Daily Jeannette Brumfield Montelukast Fnldag63fy Tablets [place] Latrice Table[place] as Al Acostarse Bogdan Frazier Cvzxqqteok92ng Tablets [place] Latrice Table[place] as Bogdan [...] 0.82-1.77 TSH With Reflex To FT4 2022 [facility] TSH With Reflex To FT4 3.64 uIU/mL (0.4-4.2) TSH With Reflex To FT4 05/23/2022 [facility] TSH With Reflex To FT4 3.72 uIU/mL (0.4-4.2) TSH With Reflex To FT4 10/23/2021 [facility] TSH With Reflex To FT4 4.96 uIU/mL High (0.4-4.2) Free T4 10/23/2021 [facility] Free T4 1.02 ng/dL [...]
== END 2024-06-30 09:44 | disposition home or self-care (01) ==
LOC: HO.HHCX 09:43
PROVIDERS: Visit Provider Student in an Organized Health Care Education/Training Program
DX: M79.641 Pain in right hand (principal); M79.642 Pain in left hand
CPT/HCPCS: 73130

== ENCOUNTER → 2024-06-30 09:43 | Outpatient (BNV) | payer OTHER, SELFPAY | PROVIDERS: Visit Provider Radiology Diagnostic Radiology | DX: M85.89 Other specified disorders of bone density and structure, multiple sites (principal); M19.041 Primary osteoarthritis, right hand; M19.042 Primary osteoarthritis, left hand | CPT/HCPCS: 73130 ==

== ENCOUNTER 2024-07-05 08:31 | Outpatient (AMB) | payer OTHER, SELFPAY ==
--- OUTSIDE RECORDS SUMMARY | 2024-07-05 08:53 | XMS_ITS | Clinical Summary ---
Author Organization [employer] Address [address] [place] [address] [address] [place] [address] Care Team Providers Care Master Lay Out Specialist Name Role Phone Hannah Alvarez MD Primary Care Pro vider Allergies Active Allergy Reactions Criticality Noted Date Comments Ibuprofen 12/10/2023 Oxycodone Other Medium 01/12/2014 Oxycodone-Acetaminophen 12/10/2023 Other Reaction(s): throat and tongue swells up Penicillins Hives 01/12/2014 Medications albuterol (ProAir HFA) 108 (90 Base) MCG/ACT inhaler Inhale. 06/15/19 15 Active ipratropium-al buterol (Combivent Respimat) 20-100 MCG/ACT inhaler Inhale 1 puff in the morning, at noon, in the evening, and at bedtime. Active loratadine (Claritin) 10 MG tablet TOME NIRAJ TABLETA TODOS LOS D 08/06/19 23 Active albuterol 0.63 MG/3ML nebulizer solution Take 0.63 mg by nebulization every 6 (six) hours if needed. Active montelukast (Singulair) 10 MG tablet take 1 tablet by oral route every day in the evening 90 tablet 08/29/19 23 Active levothyroxine (Synthroid, Levoxyl) 50 MCG tabletIndicati ons:Thyroid dysfunction TOME NIRAJ TABLETA POR VIA ORAL EN LA MANANA 90 tablet 10/14/19 23 Active calcium carbonate (Os-Hunter) 600 MG tablet TAKE 1 TABLET BY MOUTH EVERY MORNING 90 tablet 1 08/31/19 24 Active budesonide-for moterol (Symbicort) 160-4.5 MCG/ACT inhaler TOME DOS INHALACIONES POR V A ORAL DOS VECES AL D A 11/02/19 24 Active famotidine (Pepcid) 20 MG tablet TAKE 1 TABLET BY MOUTH TWICE A DAY 180 tablet 05/25/19 25 Active Tirzepatide-We ight Management 2.5 MG/0.5ML solution auto-injectorI ndications:Cla ss 3 severe obesity due to excess calories without serious comorbidity with body mass index (BMI) of 45.0 to 49.9 in adult Inject 0.5 mL (2.5 mg) under the skin 1 (one) time per week. Plan to titrate up in 4 weeks 0.5 mL 2 06/24/19 25 Active losartan-hydro CHLOROthiazide (Hyzaar) 50-12.5 MG tablet TAKE 1 TABLET BY MOUTH EVERY MORNING 90 tablet 3 07/01/19 25 Active atorvastatin (Lipitor) 40 MG tablet TAKE 1 TABLET BY MOUTH EVERY MORNING 90 tablet 3 07/01/19 25 Active cholecalcifero l (Vitamin D-3) 50 MCG (1999 UT) capsule Take 1 capsule (50 mcg) by mouth Once per day. 90 capsule 2 07/01/19 25 Active losartan-hydro CHLOROthiazide (Hyzaar) 50-12.5 MG tablet TAKE 1 TABLET BY MOUTH EVERY MORNING 90 tablet 1 01/05/20 24 2024 Discontinued(R eorder (will not trigger notification to Pharmacy)) atorvastatin (Lipitor) 40 MG tablet TAKE 1 TABLET BY MOUTH EVERY MORNING 90 tablet 1 01/05/20 24 2024 Discontinued(R eorder (will not trigger notification to Pharmacy)) cholecalcifero l (Vitamin D-3) 50 MCG (1999 UT) capsule Take 1 capsule (50 mcg) by mouth Once per day. 90 capsule 1 01/05/20 24 2024 Discontinued(R eorder (will not trigger notification to Pharmacy)) Active Problems Problem Noted Date Diagnosed Date Arthralgia of both hands 06/24/2024 Thrombocytopenia 10/14/2022 Assessment & Plan (10/14/2022 4:14 PM EDT): 08/2022 Platelets 135<---152<---141 Reports to be told that chronically has low platelet count Denies easy bleeding ,melenas, BRPR ,hematuria Pt taking PPis that is known that can cause low platelet count -will stop today PPis and instead try w prn famotidine -will repeat CBC in 6-7 weeks ( ordered already) -will f results at her next visit in 8 weeks GERD (gastroesophageal reflux disease) Assessment & Plan (10/14/2022 4:19 PM EDT): Reports hx of chronic GERD on long time PPIs -EGD in 11/2020 : Mild gastric erythema, chronic inactive gastritis, neg H pylori , neg metaplasia -stop PPI taking x 10 years and change to famotidine prn x thrombocytopenia -life style changes advised,weight loss, decrease heavy meals at night, HOB elevation -pt states was told to f w GI but never returned -pt states she will call to GI office to continue care Health care maintenance 08/28/2022 Assessment & Plan (10/14/2022 4:17 PM EDT): -pap smear: s/p total hysterectomy ,pap smear 2012 neg prior surgery -no more test needed -MM 05/2022 : left Asymmetric density mid breast --BIRADS 0-Rec left breast Dx MM 06/2022 BIRADS 1 -rec annual screening -Colonoscopy 10/2020 No polyps were detected, Moderate diverticulosis seen in the sigmoid colon. 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 Pt w obesity but current BMI looks incorrect -will repeat weight and heigh at next apt -Advised pt to improve diet and exercise,discussed healthy life style -discussed testing and regulating chief referral -refusing x now referral seen before -discussed about bariatric surgery but wants to hold Assessment & Plan (08/28/2022 8:01 PM EDT): BMI 48.9 Advised pt to improve diet and exercise,discussed healthy life style -discussed testing and regulating chief referral -refusing x now referral seen before -will consider GLP1 vs bariatric surgery to discuss at next visit Osteopenia 10/18/2021 Assessment & Plan (10/14/2022 4:03 PM EDT): -DEXA scan 10/2021: Osteopenia , -2.1FRAX : major risk 9.1% and hip 1.3-no indication x ppx tx -pt currently on vit D daily -will start ca daily -will need to repeat DEXA in next 2 to 3 years from last test Assessment & Plan (08/28/2022 7:59 PM EDT): -DEXA scan 10/2021: Osteopenia , -2.1FRAX : major risk 9.1% and hip 1.3-no indication x ppx tx -will check labs and vit D -pt currently only vit D daily will start ca and vit D at next visit -will wait x now x lab results -will need to repeat DEXA in next 2 to 3 years from last test Hyperlipidemia 08/19/2018 Assessment & Plan (10/14/2022 4:10 PM EDT): 08/2022 Total ch 186, LDL 109, HDL 55 ASCVD 6% ( indication x mod statins) -will continue w current dose of statins ,close to goal < 100 -repeat fasting lipids in 3 mo , if still elevated will consider to increase statins -life style changes advised Acquired hypothyroidism 02/16/2018 Assessment & Plan (10/14/2022 4:05 PM EDT): 08/2022 TSH Slight elevated at 4.88 and T4 wnl -pt never came to repeat TFT , offered to repeat today but states she has apt w her marketing production specialist this month and states will repeat test then -continue levothyroxine current dose Assessment & Plan (08/28/2022 7:56 PM EDT): -pt f with marketing production specialist -continue levothyroxine Cough due to MACARIO inhibitor 03/27/2017 Essential hypertension 03/27/2017 Assessment & Plan (10/14/2022 4:03 PM EDT): BP well controlled 08/2022 Microalb neg -pt complaint w BP meds -pt f w fitness and wellness coordinator -will hold on EKG -advised to be complaint -referred to opthalmo -pd to get apt Assessment & Plan (08/28/2022 7:50 PM EDT): -pt dont took this am BP med -pt f w fitness and wellness coordinator -will hold on EKG -advised to be complaint -microalb -referred to opthalmo today Obstructive sleep apnea syndrome 06/08/2013 Assessment & Plan (10/14/2022 4:01 PM EDT): Pt not using any machine x sleep ,reports lost care w sleep med and denies symptoms from BUCK Pt refusing to have sleep study done-pt understands risk of untreated BUCK , Assessment & Plan (08/28/2022 7:49 PM EDT): Pt not using any machine x sleep ,states was told to have normal exam -requested already to [facility] x sleep med studies -[facility] will try to check at [facility] Pulmonary hypertension 06/08/2013 Assessment & Plan (10/14/2022 4:19 PM EDT): Pt f w fitness and wellness coordinator and tractor trailer operator -echocardiogram 03/2022 : EF 55-60% ,Aortic sclerosis w/o stenosis,mild thickening of anterior and posterior MV Assessment & Plan (08/28/2022 8:04 PM EDT): Pt f w fitness and wellness coordinator and tractor trailer operator -echocardiogram 03/2022 : EF 55-60% ,Aortic sclerosis w/o stenosis,mild thickening of anterior and posterior MV -will try to get BUCK studies -if not able will discuss w pt to have test done again Graves' disease 03/06/2013 Asthma 12/17/2012 Assessment & Plan (10/14/2022 4:01 PM EDT): -currently controlled -continue care w tractor trailer operator -from last pulm note -seen in 08/05/2022 rec to continue inh And montelukast - states to be complaint w all meds Assessment & Plan (08/28/2022 7:50 PM EDT): -currently controlled -continue care w tractor trailer operator -from last pulm note -seen in 08/05/2022 rec to continue inh And montelukast -pt denies taking med-refilled today Resolved Problems Problem Noted Date Diagnosed Date Resolved Date Disorder of carotid artery 10/13/2019 0 08/28/2022 Abdominal pain 11/21/2010 08/28/2022 Encounters Date Type Department Care Team Description 06/30/2024 Telephone [facility] [address] [place] [phone] Hannah Alvarez MD Prior Auth Prescription 06/30/2024 Refill [facility] [address] [place] [phone] Hannah Alvarez MD 06/23/2024 10:00 AM EDT Office Visit [address] [phone] Hannah Alvarez MD Annual physical exam (Primary Dx); Dietary counseling; Exercise counseling; Pulmonary hypertension (CMS/HCC); Thrombocytopenia (CMS/HCC); Class 3 severe obesity due to excess calories without serious comorbidity with body mass index (BMI) of 45.0 to 49.9 in adult; Pain in both hands; Essential hypertension; Health care maintenance; Arthralgia of both hands 06/23/2024 Travel 06/14/2024 Orders Only [facility] External Provider, [facility] 06/13/[address] [address] Anya Byrne MA chart prep 05/24/[address] [address] Hannah Alvarez MD from Last 3 Months Immunizations Name Administration Dates Next Due Influenza injectable quadriv alent IIV4 with preservative 12/22/2017,12/02/2016,12/25/2015,01/18 Influenza injectable quadriv alent preservative free 01/30/2023,05/02/2020,01/26/2019 Influenza, High Dose Seasona l, Preservative Free 01/05/2024 Influenza, IIV3, injectable 01/12/2014 Influenza, Split (incl. roseanne fied surface antigen) 12/17/2012 Moderna Covid-19 Vaccine 6+ Bivalent 08/28/2022, 05/01/2022 Pfizer Covid-19 Vaccine 12+ 06/23/2024,,04/08/2023 Pneumococcal Conjugate PCV 20 08/01/2022 Pneumococcal Polysaccharide PPSV23 03/07/2013 RSV Bivalent 06/30/2024 Tdap 08/28/2022,12/17/2012 Zoster, Recombinant 01/29/2021,11/27/2020 Family History Medical History Relation Name Comments lung cancer for tobacco Brother DM2,liver cancer ,heart disease Father DM2,tongue cancer Sister Relation Name Status Comments Brother Father Sister Social History Tobacco Use Types Packs/Day Years Used Date Smoking Tobacco: Never Passive Smoke Exposure: Never Smokeless Tobacco: Never Tobacco Cessation:Counseling Given: Not Answered Alcohol Use Standard Drinks/Week Comments Never 0 (1 standard drink = 0.6 oz pur e alcohol) Depression Answer Date Recorded Patient Health Questionnaire-9 Score 0 06/23/2024 Patient Health Questionnaire-9 Score 0 06/23/2024 Last PHQ-9: Questionnaire Data Not on file 0 06/23/2024 Housing Stability Answer Date Recorded What is your housing situation today? I have lacy cai 12/29/[address] you li ve. Do you have problems with any of the following? None of the above 12/29/2022 Food Insecurity Answer Date Recorded Within the past 12 months, y ou worried that your food would run out before you got money to buy more: Never True 12/29/2022 Within the past 12 months,th e food you bought just didn't last and you didn't have enough money to get more: Never True Transportation Answer Date Recorded In the past 12 months, has l ack of transportation kept you from medical appts, meetings, work or from getting things needed for daily living? No 12/29/2022 Utilities Answer Date Recorded In the past 12 months, has t he electric, gas, oil or water company threatened to shut off services in your home? No 12/29/2022 Depression Answer Date Recorded Patient Health Questionnaire-2 Score 0 06/23/2024 Comments No Sex and Gender Information Value Date Recorded Sex Assigned at Female 01/13/2022 10:18 AM EDT Legal Sex Female 10:18 AM EDT Gender Identity Female 01/13/2022 10:18 AM EDT Sexual Orientation Straight 01/13/2022 10 :18 AM EDT Last Filed Vital Signs Vital Sign Reading Time Taken Comments Blood Pressure 128/70 06/23/2024 10:33 AM EDT Pulse 68 06/23/2024 10:33 AM EDT Temperature 36.5 ??C (97.7 ??F) 06/23/2024 10:33 AM E DT Respiratory Rate 20 06/23/2024 10:33 AM EDT Oxygen Saturation 97% 06/23/2024 10:33 AM EDT Inhaled Oxygen Concentration - - Weight 87 kg (191 lb 11.2 oz) 06/23/2024 10:33 A M EDT Height 152.4 cm (5') 06/23/2024 10:33 AM EDT Body Mass Index 37.44 06/23/2024 10:33 AM EDT Plan of Treatment Upcoming Encounters Date Type Department Care Team (Late st Contact Info) Description 08/12/2024 10:00 AM EDT Office Visit [facility] [address] [place] [address] [phone] Hannah Alvarez MD [address] [place], [place] [phone] Health Maintenance Due Date Last Done Comments CT Colonography 1955 FIT DNA/Cologuard 1955 FIT 1955 FOBT 1955 Sigmoidoscopy 1955 SDOH Screening 08/10/2024 08/11/2023 Alcohol/Substance Use Screening 06/23/2025 06/23/2024 Depression Screening 06/23/2025 06/23/2024, 06/24/19 Tobacco Screening 06/23/2025 06/23/2024 Mammogram 07/12/2025 07/13/2023, 08/0 06/2021, 05/31/2021, Additional history exists Lipid Panel 01/10/2029 01/11/2024, 03/16, 08/28/2022, Additional history exists Colonoscopy 11/05/2030 11/05/2020 Colorectal Cancer Screening 11/05/2030 DTaP/Tdap/Td Vaccines (3 - Td or Tdap) 08/28/2032 08/28/2022, 12/17/2012 Zoster Vaccines Completed 01/29/2021, 11/27/2020 Pneumococcal Vaccine: 50+ Years Completed 08/01/2022, 03/07/2013 Hepatitis C Screening Completed 08/28/2022, 022 Influenza Vaccine Completed 01/05/2024, , 05/02/2020, Additional history exists COVID-19 Vaccine Completed 06/23/2024, , 04/08/2023, Additional history exists RSV Patients and Patients Aged 60 years or older Completed 06/30/2024 HIB Vaccines Aged Out No longer eligi ble based on patient's age to complete this topic HPV Vaccines Aged Out No longer eligi ble based on patient's age to complete this topic Hepatitis A Vaccines Aged Out No long er eligible based on patient's age to complete this topic Hepatitis B Vaccines Aged Out No long er eligible based on patient's age to complete this topic IPV Vaccines Aged Out No longer eligi ble based on patient's age to complete this topic Meningococcal Vaccine Aged Out No yahir jessica eligible based on patient's age to complete this topic RSV under 20 months Aged Out No longe r eligible based on patient's age to complete this topic Rotavirus Vaccines Aged Out No longer eligible based on patient's age to complete this topic Procedures Procedure Name Priority Date/Time Associated Diagnosis Comments XR HAND 3+ VIEWS BILATERAL Routine 06/30/2024 9:43 AM EDT XR CHEST 2 VIEWS Routine 06/14/2024 3:59 PM EDT LIPID PANEL, STANDARD Routine 01/11/2024 9:45 AM EDT Hyperlipidemia, unspecified hyperlipidemia type BI MAMMOGRAM SCREENING TOMOSYNTHESIS BILATERAL Routine 07/13/2023 10:10 AM EDT HEPATITIS C AB W/REFL TO HCV RNA, QN, PCR Routine 08/28/2022 10:29 AM EDT Health care maintenance HM COLONOSCOPY Routine 11/05/2020 6:03 PM EDT from Last 3 Months or Most Recently Relevant to Health Maintenance Results * XR Hand 3+Views Bilateral (06/30/2024 9:43 AM EDT) Anatomical Region Laterality Modality Upper Extremities, Hand Bilateral Radiogra phic Imaging 06/30/2024 9:43 AM EDT Narrative 06/30/2024 12:08 PM EDT ?[facility] [facility] ?[address] ?[place] [address] ?XRay Report ? Signed ? Patient: Arian,Pretty ?MR#: [id number] ?? [id number] ? : 1955 ?Acct:[id number] ? Age/Sex: 68 / F ?ADM Date: 06/30/24 ? Loc: HO.HHCX ? Attending Dr: Hannah Ibrahim MD ? Ordering Physician: Hannah Alvarez MD ?? Date of Service: 06/30/24 ?? Procedure(s): XR Hand Bilat min 3v ?? Accession Number(s): [id number] ? cc: Hannah Alvarez MD ? EXAMINATION: ??XR HAND 3 VIEWS BILATERAL ? HISTORY: pt with bilateral hand pain , joint swelling ? COMPARISON: There are no prior studies available for comparison. ? FINDINGS: ? Six views of the bilateral hands are submitted. ??The bones are ?? osteopenic. ??There is no fracture or dislocation. ??There is mild ?? osteoarthritis of the DIP joints most prominently involving the ?? bilateral middle fingers. ??The soft tissues are unremarkable. ? XR/XR Hand Bilat min 3v ?? IMPRESSION: ? Osteopenia. Mild osteoarthritis of the DIP joints. ? Electronically signed by: ??Chemo Montes MD ??06/30/2024 12:05 PM EDT ? Dictated By: ?Chemo Montes MD ? Signed By: ?<Electronically signed by Chemo Montes MD in OV> ?06/30/24 1205 ? DD/ 0943 ? TD/TT: 06/30/24 1000 ? Field Service Supervisor: ? Procedure Note Ahsan, Image - 06/30/2024 [facility] [address] [place] [address] XRay Report Signed Patient: Pretty Don#: [id number] : 7Acct:[id number] Age/Sex: 68 / FADM Date: 06/30/24 Loc: HO.HHCX Attending Dr: Hannah Ibrahim MD Ordering Physician: Hannah Alvarez MD Date of Service: 06/30/24 Procedure(s): XR Hand Bilat min 3v Accession Number(s): [id number] cc: Hannah Alvarez MD EXAMINATION: XR HAND 3 VIEWS BILATERAL HISTORY: pt with bilateral hand pain , joint swelling COMPARISON: There are no prior studies available for comparison. FINDINGS: Six views of the bilateral hands are submitted. The bones are osteopenic. There is no fracture or dislocation. There is mild osteoarthritis of the DIP joints most prominently involving the bilateral middle fingers. The soft tissues are unremarkable. XR/XR Hand Bilat min 3v IMPRESSION: Osteopenia. Mild osteoarthritis of the DIP joints. Electronically signed by: Chemo Montes MD 06/30/2024 12:05 PM EDT RP Dictated By: Chemo Montes MD Signed By: <Electronically signed by Chemo Montes MD in OV> 06/30/24 1205 DD/ 0943 TD/TT: 06/30/24 1000 Field Service Supervisor: Hannah Ibrahim MD IMG XR PROCEDURES Final Result * XR Chest 2 Views (06/14/2024 3:59 PM EDT) Anatomical Region Laterality Modality Chest Radiographic Darshana ging 06/14/2024 3:59 PM EDT Narrative 06/14/2024 4:00 PM EDT ? [facility] ?[address] ?[place] [address] ?XRay Report ? Signed ? Patient: Arian,Rpetty ?MR#: [id number] ?? [id number] ? : 1955 ?Acct:[id number] ? Age/Sex: 68 / F ?ADM Date: 04/01/25 ? Loc: HO.XRAY ? Attending Ashish Frazier MD ? Ordering Physician: Bogdan Frazier MD ?? Date of Service: 06/14/24 ?? Procedure(s): XR chest 2V ?? Accession Number(s): [id number] ? cc: Hannah Alvarez MD; Bogdan Frazier MD ? CLINICAL HISTORY: J98.4 - Other disorders of lung ? 2 view chest x-ray ? Comparison: CR/SR - XR CHEST 2V - 08/04/22 10:01 EDT ? Findings: ?? No consolidation or effusion. ?? Normal size heart. ?? No acute fracture. ? IMPRESSION: ?? 1. No acute findings. ? This document has been electronically signed by: Leatha Wells MD on ?? 06/14/2024 15:59:33 ? Dictated By: ?Leatha Wells MD ? Signed By: ?<Electronically signed by Leatha Wells MD in OV> ? 06/14/24 1600 ? DD/ 1559 ? TD/TT: 06/14/24 1559 ? Field Service Supervisor: ? Procedure Note Donluanater, Image - 06/14/2024 [place] [address] XRay Report Signed Patient: Pretty DonMR#: [id number] : 1955cct:[id number] Age/Sex: 68 / FADM Date: 06/14/24 Loc: PEÑA Attending Dr: Bogdan Frazier MD Ordering Physician: Bogdan Frazier MD Date of Service: 06/14/24 Procedure(s): XR chest 2V Accession Number(s): [id number] cc: Hannah Alvarez MD; Bogdan Frazier MD CLINICAL HISTORY: J98.4 - Other disorders of lung 2 view chest x-ray Comparison: CR/SR - XR CHEST 2V - 08/04/22 10:01 EDT Findings: No consolidation or effusion. Normal size heart. No acute fracture. IMPRESSION: 1. No acute findings. This document has been electronically signed by: Leatha Wells MD on 06/14/2024 15:59:33 Dictated By: Leatha Wells MD Signed By: <Electronically signed by Leatha Wells MD in OV> 06/14/24 1600 DD/ 155 TD/TT: 06/14/241558 Field Service Supervisor: [facility] External Provider IMG XR PROCEDURES Final Result * Lipid Panel, Standard (01/11/2024 9:45 AM EDT) Triglycerides 80 <150 mg/dL [facility] Comment:Desirable Triglyceri de: less than 150 mg/dLBorderline High Triglyceride 150-199 mg/dLHigh Triglyceride: 200-499 mg/dLVery High Triglyceride: greater than or equal to 5OO mg/dL Cholesterol 133 <200 mg/dL [facility] Comment:Desirable Cholestero l: less than 200 mg/dLBorderline High Cholesterol: 200-239 mg/dLHigh Cholesterol: greater than 239 mg/dL LDL Cholesterol Calculated 65 <100 mg/dL [facility] Comment:Desirable LDL: less than 100 mg/dLNear Optimal/Above Optimal LDL: 110- 129 mg/dLBorderline High LDL: 130-159 mg/dLHigh LDL: 160-189 mg/dLVery High LDL: greater than or equal to 190 mg/dL HDL Cholesterol 52 >40 mg/dL [facility] Comment:Desirable HDL: great er than 40 mg/dL Note: This HDL assay may give artificially low results in patients with liver disease. Blood Venous blood specimen / Unknown 01/11/2024 9:45 AM EDT 01/11/2024 11:05 AM EDT Hannah Ibrahim MD LAB BLOOD ORDERAB LES Final Result [facility] [address] [place] [phone] * BI Mammogram Screening Tomosynthesis Bilateral (07/13/2023 10:10 AM EDT) Anatomical Region Laterality Modality Breast Bilateral Mammography 07/13/2023 10:1 0 AM EDT Narrative 08/01/2023 12:35 PM EDT ? [facility] ? [address] ?[place] [address] ? Mammography Report ? Signed ? Patient: Arian,Pretty ?MR#: [id number] ?? [id number] ? : 1955 ?Acct:[id number] ? Age/Sex: 67 / F ?ADM Date: 04/29/24 ? Loc: HO.MAMMO ? Attending Dr: Hannah Ibrahim MD ? Ordering Physician: Hannah Alvarez MD ?Re ?? sults: 1Negative ? Date of Service: 07/13/23 ?Follow Up: 1 Year From Orig ?? inal Mammogram ? Procedure(s): MM tomosynthesis screening BI ?? Accession Number(s): [id number] ? cc: Hannah Alvarez MD ? EXAMINATION: ?? MM SCREENING DIGITAL BREAST TOMOSYNTHESIS, BILATERAL ? CLINICAL INFORMATION: ? Screening. Asymptomatic. ? COMPARISON: ?? Mammography: This study is compared with prior exams dating back to ?? 2019. ? TECHNIQUE: ?? Digital breast tomosynthesis is performed in both the craniocaudal and ?? mediolateral oblique views along with computer-aided detection (CAD). ?? Synthesized 2D images are generated from the tomosynthesis. ? FINDINGS: ?? There are scattered areas of fibroglandular density (ACR BI-RADS breast ?? composition Category b). ? There are no significant masses, abnormal calcifications, or other ?? abnormalities. ? MM/MM tomosynthesis screening BI ?? IMPRESSION: ?? No mammographic evidence of malignancy. ? ASSESSMENT: ? BI-RADS BI-RADS 1 - Negative ? RECOMMENDATION: ?? Routine annual mammography screening. ? 1 year F/U ? This examination should not preclude the clinical evaluation of a ?? suspicious palpable abnormality. ? This patient's information was entered into a reminder system with a ?? target due date for their next mammogram. ? Dictated By: ?Liliana Oconnor MD ? Signed By: ?<Electronically signed by Liliana Oconnor MD in OV> ? 08/01/23 1231 ? DD/ 1010 ? TD/TT: ? Field Service Supervisor: ? Procedure Note Donluanater, Image - 08/01/2023 [facility] [address] [place] [address] Mammography Report Signed Patient: Pretty DonMR#: [id number] : 7Acct:[id number] Age/Sex: 67 / FADM Date: 07/13/23 Loc: [facility] Attending Dr: Hannah Ibrahim MD Ordering Physician: Hannah Alvarez sults: 1Negative Date of Service: 07/13/23Follow Up: 1 Year From Orig inal Mammogram Procedure(s): MM tomosynthesis screening BI Accession Number(s): [id number] cc: Hannah Alvarez MD EXAMINATION: MM SCREENING DIGITAL BREAST TOMOSYNTHESIS, BILATERAL CLINICAL INFORMATION: Screening. Asymptomatic. COMPARISON: Mammography: This study is compared with prior exams dating back to 2019. TECHNIQUE: Digital breast tomosynthesis is performed in both the craniocaudal and mediolateral oblique views along with computer-aided detection (CAD). Synthesized 2D images are generated from the tomosynthesis. FINDINGS: There are scattered areas of fibroglandular density (ACR BI-RADS breast composition Category b). There are no significant masses, abnormal calcifications, or other abnormalities. MM/MM tomosynthesis screening BI IMPRESSION: No mammographic evidence of malignancy. ASSESSMENT: BI-RADS BI-RADS 1 - Negative RECOMMENDATION: Routine annual mammography screening. 1 year F/U This examination should not preclude the clinical evaluation of a suspicious palpable abnormality. This patient's information was entered into a reminder system with a target due date for their next mammogram. Dictated By: Liliana Oconnor MD Signed By: <Electronically signed by Liliana Oconnor MD in OV> 08/01/23 1231 DD/ 1010 TD/TT: Field Service Supervisor: Hannah Ibrahim MD IMG BI PROCEDURES Edited Result - Final * Hepatitis C Antibody with Reflex to HCV, RNA, Quantitative, Real-Time PCR (08/28/2022 10:29 AM EDT) Hepatitis C Antibody NON-REACT DELMIS NON-REACT DELMIS [employer] Index 0.33 <1.00 [employer] Comment: HCV antibody was non-reactive. There is no laboratory evidence of HCV infection. In most cases, no further action is required. However, if recent HCV exposure is suspected, a test for HCV RNA (test code 21008) is suggested. For additional information please refer to http://education.[employer]/faq/XKS89e0 (This link is being provided for informational/ educational purposes only.) Blood Venous blood specimen / Unknown 08/28/2022 10:29 AM EDT 08/28/2022 10:30 AM EDT Narrative [facility] - 09/02/2022 2:12 AM EDT FASTING:YES PATIENT REFUSED SOME TESTING; PATIENT ENCOURAGED TO RETURN. FASTING: YES Result [facility] Hannah Ibrahim MD LAB BLOOD ORDERAB LES Final Result [facility] [address], [place] [address] [employer] [place] [address] [place] [address] * Hm Colonoscopy (11/05/2020 6:03 PM EDT) Result [facility] Maddie Provider HEALTH MAINTENANCE Final Result from Last 3 Months or Most Recently Relevant to Health Maintenance Insurance [facility] Member Subscriber Plan / Payer (Ef fective 2022-Present) Name:Pretty Don Relation to Subscriber:Self Name:Pretty Don Payer ID:Not on file Group ID:[id number] Type:Not on file Address: [address] [employer] (HMO D-SNP) Care Teams Master Lay Out Specialist Relationship Specialty Start Date End Date Hannah Alvarez MD [address] [place] [address] PCP - General Internal Medicine 06/27/22
--- OUTSIDE RECORDS SUMMARY | 2024-07-05 08:53 | XMS_ITS | Encounter Summary ---
Author Organization [employer] Address [address] [place] [address] 7 [place] [address] Care Team Providers Care Videotape Operator Name Role Phone Hannah Alvarez MD Primary Care Pro vider Reason for Visit * Reason Onset Date Comments Med Refill 06/30/2024 Encounter Details Date Type Department Care Team (Late st Contact Info) Description 06/30/2024 Refill [facility] [address] [place] [address] Hannah Alvarez MD [address] [place] [address] Social History Tobacco Use Types Packs/Day Years Used Date Smoking Tobacco: Never Passive Smoke Exposure: Never Smokeless Tobacco: Never Alcohol Use Standard Drinks/Week Comments Never 0 [...] Orientation Straight 01/13/2022 10 :18 AM EDT documented as of this encounter Miscellaneous Notes * Addendum Note - Delmis Simental RN - 06/30/2024 10:16 AM EDTAddended by: DELMIS SIMENTAL on: 06/30/2024 10:16 AM Modules accepted: Orders * Telephone Encounter - Delmis Simental RN - 06/30/2024 10:16 AM EDT All meds requested are due for refill. Last saw PCP 06/23/24. Refills are appropriate. Queued * Telephone Encounter - Darya Burnett - 06/30/2024 10:04 AM EDT Patient walked in requesting refill of medication: losartan-hydroCHLOROthiazide 50-12.5mg Atorvastatin 40 mg Vitamin D 50mgc documented in this encounter Plan of Treatment Upcoming Encounters Date Type Department Care Team (Late st Contact Info) Description 08/12/2024 10:00 AM EDT Office Visit [facility] [address] [place] [address] Hannah Alvarez MD [address] [place] [address] documented as of this encounter Visit Diagnoses Not on filedocumented in this encounter Additional Health Concerns Assessment Noted Time PHQ-9 Depression Total Score: 0 06/24/19 25 10:34 AM EDT documented as of this encounter Care Teams Videotape Operator Relationship Specialty Start Date End Date Hannah Alvarez MD [address] [place] [id number] PCP - General Internal Medicine 06/27/22 documented as of this encounter
--- OUTSIDE RECORDS SUMMARY | 2024-07-05 08:53 | XMS_ITS | Encounter Summary ---
Author Organization [employer] Address [address] [place] [address] 7t [place] [address] Care Team Providers Care It Coordinator Name Role Phone Hannah Alvarez MD Primary Care Pro vider Reason for Visit * Reason Comments Med Change Request Encounter Details Date Type Department Care Team ([facility] st Contact Info) Description 03/25/2023 Refill [facility] [address] [place] [address] Hannah Alvarez MD [address] [place] [address] Social History Tobacco Use Types Packs/Day Years Used Date Smoking Tobacco: Never Passive Smoke Exposure: Never Smokeless Tobacco: Never Alcohol Use Standard Drinks/Week Comments Never 0 (1 standard drink = 0.6 oz pur e alcohol) Depression Answer Date Recorded Patient Health Questionnaire-9 Score 0 08/28/2022 Housing Stability Answer Date Recorded What is your housing situation today? I have lacyxiao cai 12/29/[address] you [...] Date Recorded Patient Health Questionnaire-2 Score 0 08/28/2022 Comments No Sex and Gender Information Value Date Recorded Sex Assigned at Female 01/13/2022 10:18 AM EDT Legal Sex Female 10:18 AM EDT Gender Identity Female 01/13/2022 10:18 AM EDT Sexual Orientation Straight 01/13/2022 10 :18 AM EDT documented as of this encounter Plan of Treatment Upcoming Encounters Date Type Department Care Team (Late st Contact Info) Description 08/12/2024 10:00 AM EDT Office Visit [facility] [address] [place] [address] Hannah Alvarez MD [address] [place] [address] documented as of this encounter Visit Diagnoses Not on filedocumented in this encounter Additional Health Concerns Assessment Noted Time PHQ-9 Depression Total Score: 0 08/29/19 9:02 AM EDT documented as of this encounter Care Teams It Coordinator Relationship Specialty Start Date End Date Hannah Alvarez MD [address] [place] [phone] PCP - General Internal Medicine 06/27/22 documented as of this encounter
--- OUTSIDE RECORDS SUMMARY | 2024-07-05 08:53 | XMS_ITS | Encounter Summary ---
Author Organization [facility] [employer] Address [address] [place] [address] 7 [place] [address] Care Team Providers Care Temperature Inspector Name Role Phone Hannah Alvarez MD Primary Care Pro vider Reason for Visit * Reason Onset Date Comments Prior Auth Prescription 06/30/2024 Encounter Details Date Type Department Care Team ([facility] st Contact Info) Description 06/30/2024 Telephone [facility] [address] [place] [address] Hannah Alvarez MD [address] [place] [address] Prior Auth Prescription Social History Tobacco Use Types Packs/Day Years [...] as of this encounter Miscellaneous Notes * Telephone Encounter - Darya Burnett - 06/30/2024 10:07 AM EDT Patient walked in per pharmacy Patient needs PA for Tirzepatide-Weight Management 2.5 MG/0.5ML solution auto-injector. documented in this encounter Plan of Treatment Upcoming Encounters Date Type Department Care Team (Late st Contact Info) Description 08/12/2024 10:00 AM EDT Office Visit [facility] [address] [place] [address] Hannah Alvarez MD [address] [place] [address] documented as of this encounter Visit Diagnoses Not on filedocumented in this encounter Additional Health Concerns Assessment Noted Time PHQ-9 Depression Total Score: 0 06/24/19 25 10:34 AM EDT documented as of this encounter Care Teams Temperature Inspector Relationship Specialty Start Date End Date Hannah Alvarez MD [address] [place] [phone] PCP - General Internal Medicine 06/27/22 documented as of this encounter
--- OUTSIDE RECORDS SUMMARY | 2024-07-05 08:54 | XMS_ITS | Encounter Summary ---
Author Organization [employer] Address [address] [place] [address] 7 [place] [address] Care Team Providers Care Project Eng Name Role Phone Hannah Alvarez MD Primary Care Pro vider Reason for Visit * Reason Onset Date Comments Referral 05/12/2023 Encounter Details Date Type Department Care Team ([facility] st Contact Info) Description 05/12/2023 Telephone [facility] [address] [place] [address] Hannah Alvarez MD [address] [place] [address] Referral Social History Tobacco Use Types Packs/Day Years [...] encounter Miscellaneous Notes * Telephone Encounter - Amado Freddie - 05/12/2023 9:06 AM EST TC from pt requesting new referral : DATE: N/A TIME: N/A Address: [address] [place] [address] Visits: N/A Facility Name: [facility] Type of Specialist: Material Control Analyst Pt spoke with vision center and they are requesting referral from pcp. If any questions you can contact pt at [phone]. documented in this encounter Plan of Treatment Upcoming Encounters Date Type Department Care Team (Late st Contact Info) Description 08/12/2024 10:00 AM EDT Office Visit [facility] [address] [place] [address] Hannah Alvarez MD [address] [place] [address] documented as of this encounter Visit Diagnoses Diagnosis Routine eye exam Examination of eyes and vision Essential hypertension Unspecified essential hypertension documented in this encounter Additional Health Concerns Assessment Noted Time PHQ-9 Depression Total Score: 0 08/29/19 9:02 AM EDT documented as of this encounter Care Teams Project Eng Relationship Specialty Start Date End Date Hannah Alvarez MD [address] [place] [phone] PCP - General Internal Medicine 06/27/22 documented as of this encounter
--- OUTSIDE RECORDS SUMMARY | 2024-07-05 08:54 | XMS_ITS | Encounter Summary ---
Author Organization [employer] Address [address] [place] [address] 7t [place] [address] Care Team Providers Care Digital Solutions Architect Name Role Phone Hannah Alvarez MD Primary Care Pro vider Reason for Visit * Reason Comments Med Change Request Encounter Details Date Type Department Care Team ([facility] st Contact Info) Description 10/11/2023 Refill [facility] [address] [place] [address] Hannah Alvarez MD [address] [place] [address] Social History Tobacco Use Types Packs/Day Years [...] Description 08/12/2024 10:00 AM EDT Office Visit [facility] [address] [place] [address] Hannah Alvarez MD [address] [place] [address] documented as of this encounter Visit Diagnoses Not on filedocumented in this encounter Additional Health Concerns Assessment Noted Time PHQ-9 Depression Total Score: 0 08/29/19 9:02 AM EDT documented as of this encounter Care Teams Digital Solutions Architect Relationship Specialty Start Date End Date Hannah Alvarez MD [address] [place] [phone] PCP - General Internal Medicine 06/27/22 documented as of this encounter
--- OUTSIDE RECORDS SUMMARY | 2024-07-05 08:54 | XMS_ITS | Encounter Summary ---
Author Organization [employer] Address [address] [facility] 7t [place] [address] Care Team Providers Care Migration Specialist Name Role Phone Hannah Alvarez MD Primary Care Pro vider Encounter Details Date Type Department Care Team ([facility] st Contact Info) Description 03/06/2024 Orders Only [facility] [address] [place] [address] ProviderMaddie MD Social History Tobacco Use Types Packs/Day Years Used Date Smoking Tobacco: Never Passive Smoke Exposure: Never Smokeless Tobacco: Never Alcohol Use Standard Drinks/Week Comments Never 0 (1 standard drink = 0.6 oz pur e alcohol) Depression Answer Date Recorded Patient Health Questionnaire-9 Score 3 01/05/2024 Patient Health Questionnaire-9 Score 3 01/05/2024 Last PHQ-9: Questionnaire Data Not on file 1 Housing Stability Answer Date Recorded What is [...] Answer Date Recorded Patient Health Questionnaire-2 Score 2 01/05/2024 Comments No Sex and Gender Information Value [...] Description 08/12/2024 10:00 AM EDT Office Visit [facility] [address] [place] [address] Hannah Alvarez MD [address] [place] [phone] documented as of this encounter Procedures Procedure Name Priority Date/Time Associated Diagnosis Comments HM COLONOSCOPY Routine 11/05/2020 6:03 PM EDT documented in this encounter Results * Hm Colonoscopy (11/05/2020 6:03 PM EDT) us Historical Provider HEALTH MAINTENANCE Final Result documented in this encounter Visit Diagnoses Not on filedocumented in this encounter Additional Health Concerns Assessment Noted Time PHQ-9 Depression Total Score: 3 01/05/20 24 1:13 PM EDT documented as of this encounter Care Teams Migration Specialist Relationship Specialty Start Date End Date Hannah Alvarez MD [address] [place] [phone] PCP - General Internal Medicine 06/27/22 documented as of this encounter
--- OUTSIDE RECORDS SUMMARY | 2024-07-05 08:54 | XMS_ITS | Encounter Summary ---
Author Organization [employer] Address [address] [place] [address] 7t [place] [address] Care Team Providers Care Block And Case Maker Name Role Phone Hannah Alvarez MD Primary Care Pro vider Reason for Visit * Reason Comments Med Change Request Encounter Details Date Type Department Care Team ([facility] st Contact Info) Description 05/29/2023 Refill [facility] [address] [place] [address] Hannah Alvarez MD [address] [place] [address] Social History Tobacco Use Types Packs/Day Years [...] 08/12/2024 10:00 AM EDT Office Visit [facility] [address] [place] [address] Hannah Alvarez MD [address] [place] [address] documented as of this encounter Visit Diagnoses Not on filedocumented in this encounter Additional Health Concerns Assessment Noted Time PHQ-9 Depression Total Score: 0 08/29/19 9:02 AM EDT documented as of this encounter Care Teams Block And Case Maker Relationship Specialty Start Date End Date Hannah Alvarez MD [address] [place] [phone] PCP - General Internal Medicine 06/27/22 documented as of this encounter
--- OUTSIDE RECORDS SUMMARY | 2024-07-05 08:54 | XMS_ITS | Encounter Summary ---
Author Organization [employer] Address [address] [facility] 7t [place] [address] Care Team Providers Care Corn Shucker Name Role Phone Hannah Alvarez MD Primary Care Pro vider Reason for Visit * Reason Comments Med Refill Encounter Details Date Type Department Care Team (Late st Contact Info) Description 01/11/2023 Refill [facility] [address] [place] [address] Hannah Alvarez MD [address] [place] [address] Thyroid dysfunction Social History Tobacco Use Types Packs/Day Years Used Date Smoking Tobacco: Never Smokeless Tobacco: Never Alcohol Use Standard [...] Patient Health Questionnaire-2 Score 0 08/28/2022 Comments Unknown Sex and Gender Information Value Date Recorded Sex Assigned at Female 01/13/2022 10:18 AM EDT Legal Sex Female 10:18 AM EDT Gender Identity Female 01/13/2022 10:18 AM EDT Sexual Orientation Straight 01/13/2022 10 :18 AM EDT documented as of this encounter Plan of Treatment Upcoming Encounters Date Type Department Care Team (Late st Contact Info) Description 08/12/2024 10:00 AM EDT Office Visit [facility] [address] [place] [phone] Hannah Alvarez MD [address] [place] [phone] documented as of this encounter Visit Diagnoses Diagnosis Thyroid dysfunction Unspecified disorder of thyroid documented in this encounter Additional Health Concerns Assessment Noted Time PHQ-9 Depression Total Score: 0 08/29/19 9:02 AM EDT documented as of this encounter Care Teams Corn Shucker Relationship Specialty Start Date End Date Hannah Alvarez MD [address] [place] [phone] PCP - General Internal Medicine 06/27/22 documented as of this encounter
--- NOTE | 2024-07-05 09:00 | MHC.OFFVIS ---
Vital Signs 07/05/24 09:02 Height 5 ft 2 in Weight 191 lb 12.835 oz BMI 35.1 BP 120/68 Blood Pressure Location Rt brachial Position Sitting Pulse 66 Pulse Source Pulse Oximeter Pulse Oximetry (%) 93 Oxygen Delivery Method Room Air Intake Visit Reasons: COPD Allergies oxycodone [OXYCODONE] Allergy (Severe, Verified 08/03/23 13:14) N/V, HIVES penicillin G [PENICILLIN G] Allergy (Severe, Verified 08/03/23 13:14) THROAT TIGHTNESS acetaminophen [Percocet] Allergy (Mild, Verified 08/03/23 13:14) Rash HPI Comments Details: The patient is a 68-year-old woman with a known history of asthma and chronic rhinitis. She has been complaining of some shortness of breath and chest congestion. Yisj-ip-hltwzflv severity. Does respond to her respiratory therapy at this time. She was supposed to have allergy testing, but, there are not available. During that initial laboratory data she did have elevations in her IgG in addition to her IgE and IgA Antibodies and she also had evidence of thrombocytopenia. Will plan to recheck does laboratories again. Otherwise she is responding well to the current respiratory regimen. 09/25/2020 the patient is here for pulmonary follow-up visit overall she is doing better at this time. She did develop COVID-19 in January 2020. She developed significant headache and fatigue. Her symptoms subsided. Her respiratory status was not significantly worsen. In the meantime we did review her blood work demonstrating significant elevations in the IgE back in 2018 consistent with significant allergies. It appears that her allergies is usually worse in the springtime. She only has a rescue inhaler. At this point she does not need any maintenance respiratory therapy. She does take allergy medication. Clinically the patient is doing well this time and I do feel strongly about starting maintenance therapy. However, I will have her come the springtime when usually is flaring we can decide how to further optimize his respiratory regimen. 06/11/2021 the patient is here for a pulmonary follow-up visit. Overall she continues to do well on the current regimen. She has not required any prednisone or any antibiotics for respiratory issues. The patient does have allergies and her symptoms usually worse in the summertime. Therefore, she has any issues then she will call for any additional recommendations. In the meantime she seems to be doing well on the singular. She does not use any maintenance inhalers. She should have a short-acting beta agonist such as Ventolin available. I will make sure she has that when available. She was using Combivent but it does not appear to be as effective specially since she has a hard time with the set up. The patient will continue with her allergy medications specially going to the spring and summer. Then after that she can wean herself off as needed. The patient will follow-up in a year's time with a chest x-ray and pulmonary function studies. However if she has any issues prior to that she has call for an appointment. 08/01/2022 the patient is here for pulmonary follow-up visit. The patient will more. She does have increased allergies. Complaining of nasal congestion also itchy eyes. Has been using her allergy medication. In addition to that she has rescue inhaler. She has used it, but partially helpful. Back in January she was fairly sick with a asthma exacerbation. The patient does not have a nebulizer. At this point she will benefit from a nebulizer. Will prescribe 1 and provide 1 the office. She can use the nebulizer twice a day. 01/30/2023 the patient is here for a pulmonary follow-up visit. She has been complaining of worsening chest tightness and wheezing. She is been using her rescue inhaler several times a day. The patient is not on a maintenance inhaler. The patient is open to trying Symbicort. She can use it twice a day and then when she is better she can even titrated down to just as needed. The patient also has been on Singulair which she should continue. Back in July 2022 the patient did have a chest x-ray which was without any acute disease. This is reassuring. She will continue with the respiratory medications in addition to starting the Symbicort. Will follow-up in 6 months. If she has any worsening symptoms prior to that she will call the office for an earlier assessment. 08/03/2023 the patient is here for pulmonary follow-up visit. Overall the patient has been doing well. Denies any significant wheezing or significant shortness breath. She does have Symbicort. Symbicort has been very affecting beneficial. She does use it regularly. She has not had to use her rescue inhaler. She is also using the Singulair and Zyrtec. Sometimes she does take as needed. We did look at her last chest x-ray that she had back about a year ago. It is seems that her lung volumes are decreased left more than right. Some crowding of the vessels. Otherwise no acute disease. Will go ahead and repeat her chest x-ray next year specially if she is doing well she can wait till then. She should start working on deep breathing exercises. If she does develop worsening respiratory symptoms she can always get the x-ray sooner. She will continue with the current respiratory therapy will follow-up in the spring after the x-ray. 07/05/2024 the patient is here for pulmonary follow-up visit. Overall she is doing well. She continues use her maintenance inhaler, Symbicort and also has her rescue inhaler. The rescue inhaler appeared to be defective where only work twice and then it was not providing her anymore medicine. I will make sure send that again to the pharmacy. In the meantime she comes place about dyspnea on exertion mild in severity. She also has a cough intermittently. The patient did undergo a chest x-ray which I personally reviewed without any acute disease. She does have some fullness in the epigastric area and when comparing it to her CT scan of the abdomen that she had prior to that presents chance small hiatal hernia. Therefore we did talk about the importance of reflux diet. Make sure she has tolerated. She is doing all these things. At this point will continue her on her current respiratory therapy and she will follow-up in a year's time if she has any issues prior to that she will call for an earlier assessment. [facility] Medical History (Updated 08/01/22 @ 13:00 by Bogdan Frazier MD) Chronic restrictive lung disease Hypothyroidism History of COVID-19 (~01/2020) Obesity Obstructive sleep apnea Diverticulosis Leg pain HTN (hypertension) Palpitations GERD (gastroesophageal reflux disease) Aortic valve insufficiency IFG (impaired fasting glucose) Carotid arterial disease Hyperlipidemia Pulmonary hypertension History of radioactive iodine thyroid ablation Chronic allergic rhinitis Asthma Surgical History (Updated 06/11/21 @ 12:55 by Karla Wlison PA-C) History of total hysterectomy History of esophagogastroduodenoscopy (EGD) (~2020) History of colonoscopy (~2020) History of carpal tunnel surgery of right wrist (~2013) History of tubal ligation (~1986) Family History Father No problems noted. Mother No problems noted. Social History Are you a primary rental boats caretaker to a significant other at home: No Do you presently have visiting nurse or other home services: No Patient Tobacco Use Status: Never used Tobacco Review of Systems Const Denies night sweats ENT Denies change in voice, Denies lip swelling, Denies mouth pain, Reports nasal congestion, Reports nasal discharge and Denies tongue swelling Card Denies chest pain Resp Reports cough GI Denies abdominal pain Musc Denies no additional complaints Neuro Denies Neuro-related abnormal movements Psych Denies no additional complaints Feliz/Lymph Denies easy bleeding and Denies lymphadenopathy Aller/Immun Denies lip swelling and Denies tongue swelling Physical Exam Vital Signs: Last Vital Signs Pulse 66 07/05/24 09:02 BP 120/68 07/05/24 09:02 Pulse Ox 93 07/05/24 09:02 Oxygen Delivery Method Room Air 07/05/24 09:02 BMI result Body Mass Index 35.1 Const General: alert Neck Neck: Yes normal visual inspection, Yes full ROM and Yes no lymphadenopathy Chest Chest palpation & inspection: normal inspection of the chest Resp Effort & Inspection: normal respiratory effort Auscultation: diminished lung sounds Cardio Rate: regular rate Rhythm: regular rhythm Heart sounds: S1 normal heart sound present and S2 normal heart sound present GI Palpation (GI): Soft to palpation and nontender Auscultation: normal bowel sounds Skin General skin exam: rashes and/or lesions noted Assessment & Plan Assessment & Plan (1) Chronic allergic rhinitis: Code(s): J30.9 - Allergic rhinitis, unspecified Category: Medical (2) Asthma: Comment: (Moderate persistent asthma, uncomplicated) Code(s): J45.909 - Unspecified asthma, uncomplicated Category: Medical Qualifiers: Asthma complication type: uncomplicated Asthma persistence: persistent Asthma severity: moderate Qualified Code(s): J45.40 - Moderate persistent asthma, uncomplicated Plan THIAGO as needed continue Symbicort Continue Singulair and Claritin as needed CXR normal Follow-up in 12 months Medications: New albuterol sulfate 90 mcg/actuation 2 puffs inhalation QID PRN 8.5 grams 11RF shortness of breath or wheezing 30 days Coding Level of Care Code Est Pt Level 4 (16606) Diagnoses Chronic allergic rhinitis J30.9 Moderate persistent asthma without complication J45.40 Asthma complication type: uncomplicated Asthma persistence: persistent Asthma severity: moderate Time Spent (min) 16
[2024-07-05 09:02] VITALS: BP 120/68; PULSE 66; O2SAT 93; BMI 35.1
== END 2024-07-05 09:19 | disposition home or self-care (01) ==
LOC: HO.HPS 08:31
PROVIDERS: PCP Internal Medicine; Visit Provider Hospitalist
DX: J30.9 Allergic rhinitis, unspecified (principal); J45.40 Moderate persistent asthma, uncomplicated
CPT/HCPCS: 99214

== ENCOUNTER → 2024-07-05 08:31 | Outpatient (BNVA) | payer OTHER, SELFPAY | PROVIDERS: PCP Internal Medicine; Visit Provider Hospitalist | DX: J30.9 Allergic rhinitis, unspecified (principal); J45.40 Moderate persistent asthma, uncomplicated | CPT/HCPCS: 99212 ==

== ENCOUNTER 2024-08-05 09:15 | Outpatient (REF) | payer OTHER, SELFPAY ==
--- OUTSIDE RECORDS SUMMARY | 2024-08-05 09:30 | XMS_ITS | Continuity of Care Document ---
Author Organization [facility] Address [address] [place] [address] Phone [phone] Care Team Providers Care Physician Assistant Name Role Phone Rabia Mackzman Kathryn Care Team Information R eceiver [phone] Problems Active Problems Provider Date Graves' disease [...] Indications Order ing Provider Date Albuterol Sulfate LBF613(90Base) mcg/Act Aerosol Please See Attached For Detailed Directions Bogdan Frazier Levothyroxine [id number] Tablets 1 tab by mouth daily 90tabs Brandon Jose M.D. Atorvastatin [id number] Tablets [place] Latrice Tableta [place] as 1 PO Daily Jeannette Brumfield Montelukast [id number] Tablets [place] Latrice Tableta [place] as Al Acostarse Bogdan Frazier [id number] Tablets [place] Latrice Tableta [place] as Bogdan [...] 0.82-1.77 TSH With Reflex To FT4 2022 [facility] TSH With Reflex To FT4 3.64 uIU/mL (0.4-4.2) TSH With Reflex To FT4 05/23/2022 [facility] TSH With Reflex To FT4 3.72 uIU/mL (0.4-4.2) TSH With Reflex To FT4 10/23/2021 [facility] TSH With Reflex To FT4 4.96 uIU/mL High (0.4-4.2) Free T4 10/23/2021 [facility] Free T4 1.02 ng/dL [...]
[2024-08-05 11:37] LABS: Hematocrit 37.8 % (37.0-47.0); Hemoglobin 12.7 g/dl (12.0-16.0); Mean Corpuscular HGB Conc 33.6 g/dl (31.0-35.0); Mean Corpuscular Hemoglobin 31.9 pg (27.0-33.0); Mean Platelet Volume 10.6 fL (9.4-12.3); Platelet Count 162 X10*3/uL (160-400); Red Blood Count 3.98 X10*6/uL (4.20-5.50); Red Cell Distribution Width 13.1 % (11.0-16.0); White Blood Count 4.8 X10*3/uL (4.8-10.8)
[2024-08-05 11:50] LABS: Estimated Average Glucose 120 mg/dL; Hemoglobin A1c % 5.8 % (<6.0); Total Hemoglobin (HGBA1C) 3338.1606 umol/L
[2024-08-05 11:54] LABS: Alanine Aminotransferase 30 U/L (0-31); Albumin Level 4.1 g/dL (3.5-5.0); Alkaline Phosphatase 98 U/L (39-117); Anion Gap 11 (12-20); Aspartate Amino Transferase 31 U/L (5-31); Bilirubin Total 0.3 mg/dL (0.0-1.0); Blood Urea Nitrogen 15 mg/dL (9-16); C Reactive Protein 0.47 mg/dL (< or = 0.50); Calcium 9.2 mg/dL (8.4-10.2); Carbon Dioxide 29 mmol/L (22-29); Chloride 104 mmol/L (96-108); Cholesterol 194 mg/dL (<200); Estimated Glomerular Filt Rate > 60; Glucose Random 105 mg/dL (60-115); HDL Cholesterol 53 mg/dL (>40); LDL Cholesterol Calculated 124 mg/dL (<100); Potassium 3.6 mmol/L (3.3-5.1); Sodium 140 mmol/L (135-145); Total Protein 7.7 g/dL (6.5-8.0); Triglycerides 86 mg/dL (<150)
[2024-08-05 12:10] LABS: Rheumatoid Factor < 13.0 IU/mL (<15.0)
[2024-08-05 12:15] LABS: Free T4 (Free Thyroxine) 0.93 ng/dL (0.71-1.85); Thyroid Stimulating Hormone 4.04 uIU/mL (0.32-4.0); Vitamin D 25-OH Total 26.6 ng/mL (>30)
[2024-08-05 12:17] LABS: Erythrocyte Sedimentation Rate 27 MM/HR (0-20)
[2024-08-05 12:29] LABS: Creatinine Urine 98.56 mg/dL; Microalbumin Urine < 5.0 mg/L
[2024-08-09 15:44] LABS: Cyclic Citrullinated Peptide <16 UNITS
== END 2024-08-05 09:16 | disposition home or self-care (01) ==
LOC: HO.HHCL 09:15
PROVIDERS: Visit Provider Student in an Organized Health Care Education/Training Program
DX: Z00.00 Encounter for general adult medical examination without abnormal findings (principal); M79.642 Pain in left hand; M79.641 Pain in right hand; Z13.1 Encounter for screening for diabetes mellitus; Z13.6 Encounter for screening for cardiovascular disorders
CPT/HCPCS: 36415; 80053; 80061; 82043; 82306; 82570; 83036; 84439; 84443; 85027; 85652; 86140; 86200; 86431

== ENCOUNTER 2024-08-12 12:29 | Outpatient (REF) | payer OTHER, SELFPAY ==
--- OUTSIDE RECORDS SUMMARY | 2024-08-12 12:55 | XMS_ITS | Encounter Summary ---
Author Organization [employer] Address [address] [place] [address] Care Team Providers Care Photogeologist Name Role Phone Hannah Alvarez MD Primary Care Pro vider Encounter Details Date Type Department Care Team ([facility] st Contact Info) Description 08/05/2024 Results Follow-Up [facility] [address] [place] [address] Hannah Alvarez MD [address] [place] [address] C-reactive Protein, Rheumatoid Factor, Sed Rate by Modified W[place]gren, Additional followed-up results: 8 Social History Tobacco Use Types Packs/Day Years [...] encounter Miscellaneous Notes * Telephone Encounter - Sole Flynn MA - 08/10/2024 10:41 AM EDT T/c to pt to let her know to come to her upcoming appointment 08/12/2024 to go over her lab results. * Result Encounter Note - Hannah Ibrahim MD - 08/05/2024 4:08 PM EDT Please call patient to advise to come to already scheduled apt with me to go over abnormal labs Thanks documented in this encounter Plan of Treatment Upcoming Encounters Date Type Department Care Team (Late st Contact Info) Description 10/20/2024 11:15 AM EDT Office Visit [facility] [address] [place] [id number] Hannah Alvarez MD [address], [place] [phone] documented as of this encounter Visit Diagnoses Not on filedocumented in this encounter Additional Health Concerns Assessment Noted Time PHQ-9 Depression Total Score: 0 06/24/19 25 10:34 AM EDT documented as of this encounter Care Teams Photogeologist Relationship Specialty Start Date End Date Hannah Alvarez MD [address] [place] [id number] PCP - General Internal Medicine 06/27/22 documented as of this encounter
== END 2024-08-12 12:30 | disposition home or self-care (01) ==
LOC: HO.MAMMO 12:29
PROVIDERS: PCP Student in an Organized Health Care Education/Training Program; Visit Provider Student in an Organized Health Care Education/Training Program
DX: Z12.31 Encounter for screening mammogram for malignant neoplasm of breast (principal)
CPT/HCPCS: 77063; 77067

== ENCOUNTER → 2024-08-12 13:00 | Outpatient (BNV) | payer OTHER, SELFPAY | PROVIDERS: PCP Student in an Organized Health Care Education/Training Program; Visit Provider Internal Medicine | DX: Z12.31 Encounter for screening mammogram for malignant neoplasm of breast (principal) | CPT/HCPCS: 77063; 77067 ==

== ENCOUNTER 2025-02-19 06:50 | Emergency (ER) | payer OTHER, SELFPAY ==
--- NOTE | ~2025-02-19 | XR_ITS ---
CLINICAL HISTORY: s p trach placement 1 view chest x-ray Comparison: CR - XR CHEST 2V - 06/14/2024 09:44 AM EDT Findings: Portions of the exam are obscured by overlying material. No consolidation or effusion. Tracheostomy tube is in position with the tip at about the level of the mid trachea. Heart size is normal. No acute fracture. IMPRESSION: 1. Tracheostomy tube is otherwise no acute findings. This document has been electronically signed by: Hong Lovett MD on 02/19/2025 08:59:14
[2025-02-19 07:15] VITALS: BP 110/38; BP 132/57; PULSE 64; PULSE 67; RESP 18; TEMP 36.7; O2SAT 100; O2SAT 99; BMI 31.7
--- NOTE | 2025-02-19 07:23 | ED.GENADULT ---
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 No fevers or chills reported. She has a older necessary equipment at home, and has VNA come in today. Related Data Home Medications ?Medication ?Instructions ?Recorded ?Confirmed diclofenac sodium 75 mg 75 mg PO BID 12/13/19 10/29/20 tablet,delayed release ipratropium 20 mcg-albuterol 100 inhalation 12/13/19 09/25/20 mcg/actuation mist for inhalation triamcinolone acetonide 0.1 % 1 applic topical BID 12/13/19 10/29/20 topical cream levothyroxine 50 mcg tablet 50 mcg PO DAILY 12/29/19 10/29/20 losartan 50 mg-hydrochlorothiazide 1 tab PO DAILY 09/25/20 10/29/20 12.5 mg tablet atorvastatin 20 mg tablet 20 mg PO DAILY 10/29/20 10/29/20 diltiazem HCl 120 mg capsule,24 120 mg PO DAILY 10/29/20 10/29/20 hr,extended release ergocalciferol (vitamin D2) 1,250 1,250 mcg PO QWEEK 06/11/21 mcg (50,000 unit) capsule cholecalciferol (vitamin D3) 50 50 mcg PO DAILY 08/03/23 mcg (2,000 unit) capsule Previous Rx's ?Medication ?Instructions ?Recorded fluticasone propionate 50 2 spray intranasal DAILY #48 mL 03/19/20 mcg/actuation nasal spray,suspension methylcellulose (laxative) 500 mg 500 mg PO DAILY #90 tabs 03/27/21 tablet (Citrucel) omeprazole 20 mg capsule,delayed 20 mg PO DAILY #90 caps 03/27/21 release loratadine 10 mg tablet 10 mg PO DAILY #90 tabs 08/05/22 albuterol sulfate 2.5 mg/3 mL 2.5 mg (3 mL) inhalation Q6H PRN 01/30/23 (0.083 %) solution for nebulization shortness of breath or wheezing 30 days #180 mL albuterol sulfate 90 mcg/actuation 2 inh inhalation Q6H PRN shortness 01/30/23 aerosol inhaler of breath or wheezing 30 days #18 grams montelukast 10 mg tablet 10 mg PO BEDTIME #90 tabs 02/09/24 albuterol sulfate 90 mcg/actuation 2 puff inhalation QID PRN 07/05/24 aerosol inhaler shortness of breath or wheezing 30 days #8.5 grams budesonide-formoterol HFA 160 2 puff inhalation BID #10.2 ea 08/22/24 mcg-4.5 mcg/actuation aerosol inhaler Allergies Allergy/AdvReac Type Severity Reaction Status Date / Time oxycodone (OXYCODONE) Allergy Severe N/V, HIVES Verified 02/19/25 07:19 penicillin G (PENICILLIN G) Allergy Severe THROAT Verified 02/19/25 07:19 TIGHTNESS acetaminophen (Percocet) Allergy Mild Rash Verified 02/19/25 07:19 Review of Systems Constitutional: Constitutional: Reports as per [facility] Past Medical History Medical History (Updated 02/19/25 @ 07:43 by True Rivera DO) Chronic restrictive lung disease Hypothyroidism History of COVID-19 (~01/2020) Obesity Obstructive sleep apnea Diverticulosis Leg pain HTN (hypertension) Palpitations GERD (gastroesophageal reflux disease) Aortic valve insufficiency IFG (impaired fasting glucose) Carotid arterial disease Hyperlipidemia Pulmonary hypertension History of radioactive iodine thyroid ablation Chronic allergic rhinitis Asthma Surgical History (Updated 06/11/21 @ 12:55 by Karla Wilson PA-C) History of total hysterectomy History of esophagogastroduodenoscopy (EGD) (~2020) History of colonoscopy (~2020) History of carpal tunnel surgery of right wrist (~2013) History of tubal ligation (~1986) Family History Family History Father No problems noted. Mother No problems noted. Social History Social History Are you a primary health care administrator to a significant other at home: No Do you presently have visiting nurse or other home services: No Patient Tobacco Use Status: Never used Tobacco Physical Exam ED Exam Exam: General: looks age appropriate Has left nasogastric feeding tube in place able to open her mouth, graft sites do not appear to be edematous or draining, she has no trismus trach placement is clean Resp: ?No wheezing rales rhonchi no stridor moving air well Abd: ?Bowel sounds are present, no tenderness no rebound no rigidity MSK: FROM, strength 5/5 all extremities Skin: left forearm scar appears to be a graft site Neuro: ?Aler well-appearing moving upper and lower extremities symmetrically Vital Signs: Vital Signs - 24 hr 02/19/25 07:15 Temperature 98.0 F Pulse Rate 64 Respiratory Rate 18 Blood Pressure 110/38 L Pulse Oximetry 99 Oxygen Delivery Method Room Air BMI result Body Mass Index 31.7 Medical Decision Making Medical Decision Making MDM Narrative: 7:41 AM 02/19/2025 (Dr. True Rivera): generally well-appearing patient evaluated by myself and RT, chest x-ray will be obtained but she just got home from the hospital she has VNA, today, family is at bedside she is not hypoxic nonfebrile, no evidence of oropharyngeal issues in the trach site itself is clean appearing and the trachea is functional well, education provided Differential Diagnosis Differential Diagnoses: The differential diagnosis associated with the presentation includes ( post tracheostomy and bleeding, infection, no oropharyngeal abscess, dehydration, pneumonia) Admission/Observation Consideration of admission/observation: Escalation of care including admission/observation considered Independent Interpretation I performed an independent interpretation of an: Plain X-Ray ( no pneumothorax no consolidations, no subcutaneous emphysema) Discharge Plan Discharge Clinical Impression: Tracheostomy care Additional Instructions: I am very much reassured by patient's overall clinical appearance and the appearance of her postsurgical or pharyngeal area, the trach site insertion is clean and dry, trach is functional well, she is not in respiratory distress, oxygen is normal, chest x-ray reassuring, trach care at home you will have VNA to assist your please follow up with the wafer substrate tester any other issues concerns do not hesitate to come back to the ER for re-evaluation Prescriptions: No Action fluticasone propionate 50 mcg/actuation spray,suspension 2 spray intranasal DAILY Qty: 48 3RF loratadine 10 mg tablet 10 mg PO DAILY Qty: 90 3RF montelukast 10 mg tablet 10 mg PO BEDTIME Qty: 90 3RF budesonide-formoterol 160-4.5 mcg/actuation HFA aerosol inhaler 2 puff inhalation BID Qty: 10.2 0RF diltiazem HCl 120 mg Capsule,Extended Release 24 Hr 120 mg PO DAILY atorvastatin 20 mg Tablet 20 mg PO DAILY levothyroxine 50 mcg tablet 50 mcg PO DAILY ipratropium-albuterol 20-100 mcg/actuation mist inhalation diclofenac sodium 75 mg tablet,delayed release (DR/EC) 75 mg PO BID triamcinolone acetonide 0.1 % cream 1 applic topical BID losartan-hydrochlorothiazide 50-12.5 mg tablet 1 tab PO DAILY omeprazole 20 mg capsule,delayed release(DR/EC) 20 mg PO DAILY Qty: 90 4RF Citrucel 500 mg tablet 500 mg PO DAILY Qty: 90 4RF Rx Instructions: take it with full glass of water ergocalciferol (vitamin D2) 1,250 mcg (50,000 unit) capsule 1,250 mcg PO QWEEK albuterol sulfate 90 mcg/actuation HFA aerosol inhaler 2 inh inhalation Q6H PRN (Reason: shortness of breath or wheezing) 30 Days Qty: 18 12RF albuterol sulfate 2.5 mg /3 mL (0.083 %) solution for nebulization 2.5 mg inhalation Q6H PRN (Reason: shortness of breath or wheezing) 30 Days Qty: 180 11RF albuterol sulfate 90 mcg/actuation HFA aerosol inhaler 2 puff inhalation QID PRN (Reason: shortness of breath or wheezing) 30 Days Qty: 8.5 11RF cholecalciferol (vitamin D3) 50 mcg (2,000 unit) capsule 50 mcg PO DAILY Print Language: Azeri
--- OUTSIDE RECORDS SUMMARY | 2025-02-19 07:46 | XMS_ITS | Continuity of Care Document ---
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 Outside incisional Bx was performed on 10/19/24 by OM. No DOI reported on path. It looks like she has a single right level III LN thats enlarged <3cm on CT neck and no obvious chest nodules, making her [id number] but will wait for final rads read. Still pending PET scan planned for tomorrow. We discussed treatment paradigm including chemoradiotherapy versus surgical intervention for this patient. We did talk about medical toxicity with both chemotherapy and radiation along with its risk and benefits. Due to the location and size of the mass I do think they would need a significant partial glossectomy, potentially Hemiglossectomy, and require tissue replacement with a free flap. We did discuss the surgical procedures and risk, benefits, and alternatives. I mention to them that the closest group that would do this would be either in [place] or [place]. I would like them to also get set up with medical and radiation oncology as well in the meantime in case they choose to undergo that route. I mention that we are here to assist with post-treatment and surveillance -PET CT for staging to shanta will look out for results -Referral to Head and Neck Oncology sent, she hasnt been contacted. Ill reach out again to them. -RV in 1-2 months. with H&N results. [email or web address] Not available 12/07/2024 10:18:17 Plan of Treatment Reminders Order Date Submit Date Provider Last Modified By Organization Details Last Modified Time Details Appointments None record ed. Lab None record ed. Referral None record ed. Procedures None record ed. Surgeries None record ed. Imaging None record ed. Medication Orders None record ed. Patient TargetsNo targets recorded. Patient InstructionsNo instructions recorded. Reason for Referral None Reported. Results Created Date Observation Date Name Description Value Unit Range Abnormal Flag Note LastModifiedBy Organization Detail LastModifiedTime 12/09/1912/06/2024 CT, neck, soft tissu e, w/ contr ast No observ ation record ed. [email or web address] [facility] [address] [address], [place], [address], 12/08/2024 16:48:34 12/09/19 25 12/06/2024 CT, chest , w/ contr ast No observ ation record ed. [email or web address] [facility] [address] [address], [place], [address], 12/08/2024 16:49:22 12/09/1912/08/2024 PET-C T, skull base to mid-t high scan No observ ation record ed. [email or web address] [facility] [address] [facility], [place], [address], 12/14/2024 12:10:01 Result Notes None recorded. 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 Procedures Surgical History Date Name Laterality Status Provider Name and Address Organization Details Recorded Time 11/09/2024 FOL_normal _DHL completed Germán Neftaly, [address],[facility] [address], [place], [address], [facility] 11/09/2024 08:20:50 Imaging Results None recorded. Procedure Notes None recorded. Medical Equipment None Reported. Allergies Allergen ID Allergen Name Allergen Category Reaction Reaction Severity Criticality Documentation Date Start Date Code Code System Note Provider Name and Address Organization Details Recorded Time 966945 ibuprofen medicatio n Not available Not available Not available 02/06/2025 5640 RxNorm Not Available [facility] 5 04:42:37 464920 Product containin g penicilli n (product) medicatio n Not available Not available Not available 02/06/2025 54402 8001 SNOMED Not Available [facility] 5 04:42:37 453649 acetamino phen / oxycodone medicatio n Not available Not available Not available 02/06/2025 81896 3 RxNorm Not Available [facility] 5 04:42:37 Medications Name Sig Start Date Stop Date Status Note LastModified by Organization Details LastModified Time atorvastati n 40 mg tablet TOME 1 TABLETA POR V A ORAL TODOS LOS D EN LA MA FE active Not Available Not Available No t Available clotrimazol e 10 mg alma TAKE 1 TABLET (10 MG) BY MOUTH 5 (FIVE) TIMES A DAY FOR 14 DAYS. 11/09 completed Not Available Not Available Not Available Lidocaine Viscous 2 % mucosal solution SWISH AND SPIT 15 ML EVERY 4 (FOUR) HOURS IF NEEDED FOR MUCOSITIS . active Not Available Not Available No t Available acetaminoph en 500 mg tablet TAKE 1 TABLET (500 MG) BY MOUTH EVERY 8 (EIGHT) HOURS IF NEEDED FOR MILD PAIN FOR UP TO 10 DAYS. 11/09 completed Not Available Not Available Not Available lidocaine-p rilocaine 2.5 %-2.5 % topical cream APPLY TOPICALLY IF NEEDED EACH DAY FOR MILD PAIN. active Not Available Not Available No t Available oxycodone-a cetaminophe n 5 mg-325 mg tablet TAKE 1 TABLET BY MOUTH EVERY 8 HOURS IF NEEDED FOR SEVERE PAIN FOR UP TO 28 DAYS. active Not Available Not Available No t Available calcium 600 mg (as calcium carbonate 1,500 mg) tablet TAKE 1 TABLET (600 MG) BY MOUTH WITH BREAKFAST AND WITH EVENING MEAL. active Not Available Not Available No t Available famotidine 20 mg tablet TOME 1 TABLETA POR V A ORAL DOS VECES AL D A active Not Available Not Available No t Available levothyroxi ne 50 mcg tablet TOME 1 TABLETA POR V A ORAL TODOS LOS D active Not Available Not Available No t Available montelukast 10 mg tablet TOME NIRAJ TABLETA POR V A ORAL TODOS LOS D AL ACOSTARSE active Not Available Not Available No t Available oxycodone-a cetaminophe n 2.5 mg-325 mg tablet TOME 1 TABLETA POR V A ORAL CADA 8 HORAS PARA DOLOR CHRISTOPHER CUANDO SEA NECESARIO active Not Available Not Available No t Available albuterol sulfate HFA 90 mcg/actuati on aerosol inhaler INHALE 2 PUFFS 4 TIMES A DAY NEEDED FOR SHORTNESS OF BREATH OR WHEEZING FOR 30 DAYS active Not Available Not Available No t Available losartan 50 mg-hydrochl orothiazide 12.5 mg tablet TOME 1 TABLETA POR V A ORAL TODOS LOS D EN LA MA FE active Not Available Not Available No t Available cholecalcif jordan (vitamin D3) 125 mcg (5,000 unit) capsule TAKE 1 CAPSULE (125 MCG) BY MOUTH ONCE PER DAY. 11/09 completed Not Available Not Available Not Available chlorhexidi ne gluconate 0.12 % mouthwash PLEASE SEE ATTACHED FOR DETAILED DIRECTION S active Not Available Not Available No t Available budesonide- formoterol HFA 160 mcg-4.5 mcg/actuati on aerosol inhaler INHALE DANDO DOS SOPLIDOS DOS VECES AL D A active Not Available Not Available No t Available cholecalcif jordan (vitamin D3) 50 mcg (2,000 unit) capsule TAKE 1 CAPSULE (50 MCG) BY MOUTH ONCE PER DAY. active Not Available Not Available No t Available naloxone 4 mg/actuatio n nasal spray PLEASE SEE ATTACHED FOR DETAILED DIRECTION S active Not Available Not Available No t Available Zepbound 2.5 mg/0.5 mL subcutaneou s pen injector INJECT 0.5 ML (2.5 MG) UNDER THE SKIN 1 (ONE) TIME PER WEEK. PLAN TO TITRATE UP IN 4 WEEKS active Not Available Not Available No t Available Vitals Date Recorded Body height Provider Name an d Address Organization Details Last Updated DateTime 12/07/2024 152.4 cm TAMMY COMI [place] - [facility] 12/07/2024 09:50:49 Social History None recorded. Functional Status None recorded. Mental Status None recorded. Family History Nothing Reported. Medical History Condition Response Thyroid Problems Y Hypertension Y Gynecological HistoryNo gynecological history recorded. Obstetrics History GPAL:G 0 P 0 0 0 0 Past Encounters Encounter ID Performer Location Encounter Start Date Encounter Closed Date Diagnosis/Indication Diagnosis SNOMED-CT Code Diagnosis ICD10 Code Diagnosis IMO Codes Diagnosis Note [id number] Germán Higginbotham, DO [facility] [address] [address] 11/09/2024 09:20:18 11/09/2024 11:03:31 Squamous cell carcinoma of mouth 874252083 C06.9 67583701 Mass of he ad and/or neck 724862343 R22.1 Pre-surgery testing 1104 11330 Z01.812 [id number] Germán Higginbotham DO [facility] [address] [address] 12/07/2024 09:26:03 12/07/2024 10:22:27 Squamous cell carcinoma of mouth 730940582 C06.9 32941003 Mass of he ad and/or neck 878863451 R22.1 Health Concerns Section Related Observation LastModified by Organization Razaai ls LastModified Time None Recorded Concern Status LastModified by Organization Details LastModified Time None Recorded Payers Encounter Date Sequence Insurance Name Policy Number Policy Davila Covered Member ID Davila Member ID Guarantor Name 12/07/2024 1 [facility] - DOS ON OR AFTER 2022 - MEDICARE [place]VANTAGE [place] (MEDICARE REPLACEMENT/ADV ANTAGE - PPO) Pretty Don [id number] Pretty Don Notes Date Note Type Note Provider Name and Address Organization Details Recorded Time 12/07/2024 text/html ROS as noted in the HPI Interval history: She was able to obtain her CT neck and chest 12/06/24 at [facility]. The final read is currently pending. I did review the CT neck there appears to be at least 1 single lymph node in level 3 on the right that looks abnormal to me. She has some scattered lymphadenopathy on the contralateral neck but does not look pathologic. I reviewed her CT chest, and my limited capacity I do not see any obvious masses or lesions here as well. PET is schedueled for tomorrow. She hasnt seen head and neck team yet in [place]. Has not been reached out to yet. Onc: Dr. Hector LORENZO, 11/25/24Agrees [id number] and still pending CT/PET results - Surgery with Concurrent Neoadjuvant or adjuvant Pembrolizumab per Keynote-689 trial vs CCRT. 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 Outside incisional Bx was performed on 10/19/24 by [facility]. No DOI reported on path. Germán Higginbotham, DO [address] [facility],[address] [address], [place], [address], [facility] - [facility] 12/07/2024 10:18:55 OBGyn Episode No OBEpisode recorded.
--- OUTSIDE RECORDS SUMMARY | 2025-02-19 07:46 | XMS_ITS | Encounter Summary ---
Author Organization [facility] Address [address] [facility] [address] [place] [address] Phone Care Team Providers Care Manager Of It Name Role Phone Unavailable Primary Care Provider Unavailabl e Encounter Details Date Type Department Care Team (Late st Contact Info) Description 01/15/2018 Ancillary Orders [facility] [address] [place] [address] [place] [address] Ferdinand Hernandez DO [address] [place] [address] Palpitations Social History Tobacco Use Types Packs/Day Years Used Date Smoking Tobacco: Never Assessed Comments Unknown Sex and Gender Information Value Date Recorded Sex Assigned at Not on file Legal Sex Female 9:52 PM EDT Gender Identity Not on file Sexual Orientation Not on file documented as of this encounter Plan of Treatment Not on file documented as of this encounter Results * Holter Monitor 24 Hours (01/15/2018 3:36 PM EDT) Anatomical Region Laterality Modality Heart Other Narrative 01/15/2018 5:12 PM EDT 24-hour monitor: Baseline rhythm is sinus with a minimum heart rate of 2 maximum 109 average 71. There was one PVC. There were 2 PACs. Patient reported symptoms of dizziness. Impression: Normal 24-hour monitor. Symptoms during sinus rhythm. Procedure Note Jamar Diaz MD - 01/15/2018 24-hour monitor: Baseline rhythm is sinus with a minimum heart rate of 2maximum 109 average 71. There was one PVC. There were 2 PACs. Patientreported symptoms of dizziness. Impression: Normal 24-hour monitor. Symptoms during sinus rhythm. Ferdinand Hernandez DO [facility] ORDERABLE S Final Result documented in this encounter Visit Diagnoses Diagnosis Palpitations Palpitations documented in this encounter Additional Source Comments The information contained in this document represents components of the legal health record. It is not the complete legal health record.[facility]
--- OUTSIDE RECORDS SUMMARY | 2025-02-19 07:46 | XMS_ITS | Encounter Summary ---
Author Organization [facility] Address [address] [place] [address] Phone Care Team Providers Care Back Grinder Name Role Phone Unavailable Primary Care Provider Unavailabl e Encounter Details Date Type Department Care Team (Late st Contact Info) Description 01/15/2018 Ancillary Orders [facility] [address] [place] [address] Jamar Diaz MD [address] [place] [address] [email or web address] Social History Tobacco Use Types Packs/Day Years Used Date Smoking Tobacco: Never Assessed Comments Unknown Sex and Gender Information Value Date Recorded Sex Assigned at Not on file Legal Sex Female 9:52 PM EDT Gender Identity Not on file Sexual Orientation Not on file documented as of this encounter Plan of Treatment Not on file documented as of this encounter Visit Diagnoses Not on filedocumented in this encounter Additional Source Comments The information contained in this document represents components of the legal health record. It is not the complete legal health record.[facility]
--- OUTSIDE RECORDS SUMMARY | 2025-02-19 07:46 | XMS_ITS | Encounter Summary ---
Author Organization [employer] Address [address] [facility] 7 [place] [address] Care Team Providers Care Jd Edwards Name Role Phone Hannah Alvarez MD Primary Care Pro vider Reason for Visit * Reason Comments Med Change Request Encounter Details Date Type Department Care Team ([facility] st Contact Info) Description 08/12/2024 Refill [facility] [address] [place] [address] Hannah Alvarez MD [address] [place] [address] Social History Tobacco Use Types Packs/Day Years [...] housing situation today? I have lacy cai 08/12/[address] you li ve. Do you have problems with any of the following? None of the above 08/12/2024 Food Insecurity Answer Date Recorded Within the past 12 months, y ou worried that your food would run out before you got money to buy more: Never True 08/12/2024 Within the past 12 months,th e food you bought just didn't last and you didn't have enough money to get more: Never True Transportation Answer Date Recorded In the past 12 months, has l ack of transportation kept you from medical appts, meetings, work or from getting things needed for daily living? No 08/12/2024 Utilities Answer Date Recorded In the past 12 months, has t he electric, gas, oil or water company threatened to shut off services in your home? No 08/12/2024 Depression Answer Date Recorded Patient Health Questionnaire-2 Score 0 06/23/2024 Internet Access Answer Date Recorded Internet Access Q1 No 08/12/2024 Internet Access Q2 I do not want or need it 07/16 Comments No Sex and Gender Information Value Date Recorded Sex Assigned at Female 01/13/2022 10:18 AM EDT Legal Sex Female 10:18 AM EDT Gender Identity Female 01/13/2022 10:18 AM EDT Sexual Orientation Straight 01/13/2022 10 :18 AM EDT documented as of this encounter Miscellaneous Notes * Telephone Encounter - Hannah Ibrahim MD - 08/12/2024 3:54 PM EDT Sent new prescription documented in this encounter Plan of Treatment Upcoming Encounters Date Type Department Care Team (Late st Contact Info) Description 05/04/2025 9:30 AM EST Office Visit [facility] [address] [place] [phone] Hannah Alvarez MD [address] [place] [phone] documented as of this encounter Visit Diagnoses Not on filedocumented in this encounter Additional Health Concerns Assessment Noted Time PHQ-9 Depression Total Score: 0 06/24/19 25 10:34 AM EDT documented as of this encounter Care Teams Jd Edwards Relationship Specialty Start Date End Date Hannah Alvarez MD [address] [place] [phone] PCP - General Internal Medicine 06/27/22 documented as of this encounter
--- OUTSIDE RECORDS SUMMARY | 2025-02-19 07:46 | XMS_ITS | Encounter Summary ---
Author Organization [employer] Address [address] [facility] 7t [place] [address] Care Team Providers Care Direct Support Worker Name Role Phone Hannah Alvarez MD Primary Care Pro vider Encounter Details Date Type Department Care Team ([facility] st Contact Info) Description 11/21/2024 Community Care Management [facility] [address] [place] [address] [employer] Link, Physician, Social History Tobacco Use Types Packs/Day Years [...] your housing situation today? I have lacy trell 08/12/[address] you li [...] the past 12 months, has t he [employer], gas, oil or water company threatened to [...] Description 05/04/2025 9:30 AM EST Office Visit [facility] [address] [place] [phone] Hannah Alvarez MD [address] [place] [address] [phone] documented as of this encounter Visit Diagnoses Not on filedocumented in this encounter Additional Health Concerns Assessment Noted Time PHQ-9 Depression Total Score: 0 06/24/19 25 10:34 AM EDT documented as of this encounter Care Teams Direct Support Worker Relationship Specialty Start Date End Date Hannah Alvarez MD [address] [place] [address] [phone] PCP - General Internal Medicine 06/27/22 documented as of this encounter
--- OUTSIDE RECORDS SUMMARY | 2025-02-19 07:46 | XMS_ITS | Encounter Summary ---
Author Organization [employer] Address [address] [facility] 7 [place] [address] Care Team Providers Care Truck Hopper Name Role Phone Hannah Alvarez MD Primary Care Pro vider Reason for Visit * Reason Comments Med Change Request Encounter Details Date Type Department Care Team ([facility] st Contact Info) Description 10/11/2023 Refill [facility] [address] [place] [address] Hannah Alvarez MD [address] [place] [address] Social History Tobacco Use Types Packs/Day Years Used Date Smoking Tobacco: Never Passive Smoke Exposure: Never Smokeless Tobacco: Never Alcohol Use Standard Drinks/Week Comments Never 0 (1 standard drink = 0.6 oz pur e alcohol) Depression Answer Date Recorded Patient Health Questionnaire-9 Score 0 08/28/2022 Housing Stability Answer Date Recorded What is your housing situation today? I have lacy trell 12/29/[address] you li [...] Description 05/04/2025 9:30 AM EST Office Visit [facility] [address] [place] [address] [phone] Hannah Alvarez MD [address] [place] [address] documented as of this encounter Visit Diagnoses Not on filedocumented in this encounter Additional Health Concerns Assessment Noted Time PHQ-9 Depression Total Score: 0 08/29/19 9:02 AM EDT documented as of this encounter Care Teams Truck Hopper Relationship Specialty Start Date End Date Hannah Alvarez MD [address] [place] [phone] PCP - General Internal Medicine 06/27/22 documented as of this encounter
--- OUTSIDE RECORDS SUMMARY | 2025-02-19 07:46 | XMS_ITS | Encounter Summary ---
Author Organization [employer] Address [address] [place] [address] 7 [place] [address] Care Team Providers Care Metal Sprayer Production Name Role Phone Hannah Alvarez MD Primary Care Pro vider Reason for Visit * Reason Onset Date Comments Referral 05/12/2023 Encounter Details Date Type Department Care Team ([facility] st Contact Info) Description 05/12/2023 Telephone [facility] [address] [place] [address] Hannah Alvarez MD [address] [place] [address] Referral Social History Tobacco Use Types Packs/Day [...] referral : DATE: N/A TIME: N/A Address: [address] [place] [address] Visits: N/A Facility Name: [facility] [place] [facility] Type of Specialist: Big Machine Consultant Pt spoke with [facility] and they are requesting referral from pcp. If any questions you can contact pt at [phone]. documented in this encounter Plan of Treatment Upcoming Encounters Date Type Department Care Team (Late st Contact Info) Description 05/04/2025 9:30 AM EST Office Visit [facility] [address] [place] [phone] Hannah Alvarez MD [address] [place] [phone] documented as of this encounter Visit Diagnoses Diagnosis Routine eye exam Examination of eyes and vision Essential hypertension Unspecified essential hypertension documented in this encounter Additional Health Concerns Assessment Noted Time PHQ-9 Depression Total Score: 0 08/29/19 9:02 AM EDT documented as of this encounter Care Teams Metal Sprayer Production Relationship Specialty Start Date End Date Hannah Alvarez MD [address] [place] [phone] PCP - General Internal Medicine 06/27/22 documented as of this encounter
--- OUTSIDE RECORDS SUMMARY | 2025-02-19 07:46 | XMS_ITS | Encounter Summary ---
Author Organization [employer] Address [address] [facility] 7t [place] [address] Care Team Providers Care Manufacturing Sales Representative Name Role Phone Hannah Alvarez MD Primary Care Pro vider Reason for Visit * Reason Comments Med Refill Encounter Details Date Type Department Care Team (Late st Contact Info) Description 10/28/[address] [facility] [address] [place], [place] [phone] Tre Ivan, JONY [address] [place], [place] [phone] Tongue mass Social History Tobacco Use Types Packs/Day Years [...] encounter Miscellaneous Notes * Telephone Encounter - Wei Diaz DMD - 10/31/2024 7:49 AM EDT Approving, but needs appt for additional refills. documented in this encounter Plan of Treatment Upcoming Encounters Date Type Department Care Team (Late st Contact Info) Description 05/04/2025 9:30 AM EST Office Visit [facility] [address] [place] [phone] Hannah Alvarez MD [address] [place] [phone] documented as of this encounter Visit Diagnoses Diagnosis Tongue mass Swelling, mass, or lump in head and neck documented in this encounter Additional Health Concerns Assessment Noted Time PHQ-9 Depression Total Score: 0 06/24/19 25 10:34 AM EDT documented as of this encounter Care Teams Manufacturing Sales Representative Relationship Specialty Start Date End Date Hannah Alvarez MD [address] [place] [phone] PCP - General Internal Medicine 06/27/22 documented as of this encounter
--- OUTSIDE RECORDS SUMMARY | 2025-02-19 07:46 | XMS_ITS | Encounter Summary ---
Author Organization [employer] Address [address] [facility] 7 [place] [address] Care Team Providers Care Mechanical Sound Technician Name Role Phone Hannah Alvarez MD Primary Care Pro vider Reason for Visit * Reason Comments Med Change Request Encounter Details Date Type Department Care Team ([facility] st Contact Info) Description 10/31/2024 Refill [facility] [address] [place] [address] Hannah Alvarez MD [address] [place] [address] Social History Tobacco Use Types Packs/Day Years [...] Description 05/04/2025 9:30 AM EST Office Visit [facility] [address] [place] [phone] Hannah Alvarez MD [address] [place] [phone] documented as of this encounter Visit Diagnoses Not on filedocumented in this encounter Additional Health Concerns Assessment Noted Time PHQ-9 Depression Total Score: 0 06/24/19 25 10:34 AM EDT documented as of this encounter Care Teams Mechanical Sound Technician Relationship Specialty Start Date End Date Hannah Alvarez MD [address] [place] [phone] PCP - General Internal Medicine 06/27/22 documented as of this encounter
--- OUTSIDE RECORDS SUMMARY | 2025-02-19 07:46 | XMS_ITS | Encounter Summary ---
Author Organization [employer] Address [address] [place] [address] [place] [address] Care Team Providers Care Assembly Line Machine Operator Name Role Phone Hannah Alvarez MD Primary Care Pro vider Reason for Visit * Reason Onset Date Comments Med Refill 12/14/2024 Encounter Details Date Type Department Care Team ([facility] st Contact Info) Description 12/14/2024 Telephone [facility] [address] [place] [address] Hannah Alvarez MD [address] [place] [address] Med Refill Social History Tobacco Use Types Packs/Day Years [...] encounter Miscellaneous Notes * Telephone Encounter - Robert Dwaine - 12/14/2024 10:05 AM EDT TC from pt requesting medication refill. Medications needing refill : oxyCODONE-acetaminophen (Percocet) 2.5-325 MG tablet To be sent to: [facility]/pharmacy #[id number] [place] [address] [address] [facility] documented in this encounter Plan of Treatment Upcoming Encounters Date Type Department Care Team (Late st Contact Info) Description 05/04/2025 9:30 AM EST Office Visit [facility] [address] [place] [address] Hannah Alvarez MD [address] [place] [address] documented as of this encounter Visit Diagnoses Not on filedocumented in this encounter Additional Health Concerns Assessment Noted Time PHQ-9 Depression Total Score: 0 06/24/19 25 10:34 AM EDT documented as of this encounter Care Teams Assembly Line Machine Operator Relationship Specialty Start Date End Date Hannah Alvarez MD [address] [place] [phone] PCP - General Internal Medicine 06/27/22 documented as of this encounter
--- OUTSIDE RECORDS SUMMARY | 2025-02-19 07:46 | XMS_ITS | Encounter Summary ---
Author Organization [employer] Address [address] [facility] 7 [place] [address] Care Team Providers Care Life Coach Name Role Phone Hannah Alvarez MD Primary Care Pro vider Reason for Visit * Reason Comments Med Change Request Encounter Details Date Type Department Care Team ([facility] st Contact Info) Description 05/29/2023 Refill [facility] [address] [place] [address] Hannah Alvarez MD [address] [place] [address] Social History Tobacco Use Types Packs/Day Years [...] Description 05/04/2025 9:30 AM EST Office Visit [facility] [address] [place] [address] [phone] Hannah Alvarez MD [address] [place] [address] documented as of this encounter Visit Diagnoses Not on filedocumented in this encounter Additional Health Concerns Assessment Noted Time PHQ-9 Depression Total Score: 0 08/29/19 9:02 AM EDT documented as of this encounter Care Teams Life Coach Relationship Specialty Start Date End Date Hannah Alvarez MD [address] [place] [address] [phone] PCP - General Internal Medicine 06/27/22 documented as of this encounter
--- OUTSIDE RECORDS SUMMARY | 2025-02-19 07:46 | XMS_ITS | Encounter Summary ---
Author Organization [employer] Address [address] [facility] 7 [place] [address] Care Team Providers Care Rotary Kiln Operator Name Role Phone Hannah Alvarez MD Primary Care Pro vider Encounter Details Date Type Department Care Team ([facility] st Contact Info) Description 08/12/2024 Orders Only [facility] [address] [place] [address] Hannah Alvarez MD [address] [place] [address] Social History Tobacco Use Types Packs/Day Years [...] Description 05/04/2025 9:30 AM EST Office Visit [facility] [address] [place] [address] [phone] Hannah Alvarez MD [address] [place] [address] documented as of this encounter Procedures Procedure Name Priority Date/Time Associated Diagnosis Comments BI MAMMOGRAM SCREENING TOMOSYNTHESIS BILATERAL Routine 08/12/2024 12:34 PM EDT documented in this encounter Results * BI Mammogram Screening Tomosynthesis Bilateral (08/12/2024 12:34 PM EDT) Anatomical Region Laterality Modality Breast Bilateral Mammography 08/12/2024 12:3 4 PM EDT Narrative 08/20/2024 9:12 AM EDT [facility] [address] [place] [phone] Mammography Report Signed Patient: Pretty Don MR#: [id number] : 1955 Acct:[id number] Age/Sex: 68 / F ADM Date: 08/12/24 Loc: VLAD.CRISTIN Attending Dr: Hannah Ibrahim MD Ordering Physician: Hannah Alvarez MD Re sults: 1Negative Date of Service: 08/12/24 Follow Up: 1 Year From Orig inal Mammogram Procedure(s): MM tomosynthesis screening BI Accession Number(s): [id number] cc: Hannah Alvarez MD EXAMINATION: MM SCREENING DIGITAL BREAST TOMOSYNTHESIS, BILATERAL CLINICAL INFORMATION: Screening. Asymptomatic. COMPARISON: Mammography: Comparison is made with available priors TECHNIQUE: Digital breast mammography with tomosynthesis is performed in both the craniocaudal and mediolateral oblique views along with computer-aided detection (CAD). FINDINGS: There are scattered areas of fibroglandular [...] target due date for their next mammogram. Electronically signed by: Ysabel Armstrong DO 08/20/2024 09:09 AM EDT Dictated By: Ysabel Armstrong DO Signed By: <Electronically signed by Ysabel Armstrong DO in OV> 08/20/24 0909 DD/ 1234 TD/TT: 08/12/24 1249 Drapery Cutter Machine: Procedure Note Donotuseinterpreter, Image - 08/20/2024 [facility] [address] [place] [address] Mammography Report Signed Patient: Pretty DonMR#: [id number] : 1955cct:[id number] Age/Sex: 68 / FADM Date: 08/12/24 Loc: VLAD.MAMMO Attending Dr: Hannah Ibrahim MD Ordering Physician: Hannah Alvarez sults: 1Negative Date of Service: 08/12/24Follow Up: 1 Year From Orig inal Mammogram Procedure(s): MM tomosynthesis screening BI Accession Number(s): [id number] cc: Hannah Alvarez MD EXAMINATION: MM SCREENING DIGITAL BREAST TOMOSYNTHESIS, BILATERAL CLINICAL INFORMATION: Screening. Asymptomatic. COMPARISON: Mammography: Comparison is made with available priors TECHNIQUE: Digital breast mammography with tomosynthesis is performed in both the craniocaudal and mediolateral oblique views along with computer-aided detection (CAD). FINDINGS: There are scattered areas of fibroglandular [...] target due date for their next mammogram. Electronically signed by: Ysabel Armstrong DO 08/20/2024 09:09 AM EDT Dictated By: Ysabel Armstrong DO Signed By: <Electronically signed by Ysabel Armstrong DO in OV> 08/20/24 0909 DD/ 1234 TD/TT: 08/12/24 1249 Drapery Cutter Machine: Hannah Ibrahim MD IMG BI PROCEDURES Edited Result - Final documented in this encounter Visit Diagnoses Not on filedocumented in this encounter Additional Health Concerns Assessment Noted Time PHQ-9 Depression Total Score: 0 06/24/19 25 10:34 AM EDT documented as of this encounter Care Teams Rotary Kiln Operator Relationship Specialty Start Date End Date Hannah Alvarez MD [address] [place] [phone] PCP - General Internal Medicine 06/27/22 documented as of this encounter
--- OUTSIDE RECORDS SUMMARY | 2025-02-19 07:46 | XMS_ITS | Clinical Summary ---
Author Organization [employer] Address [address] [place] [address] 7t [place] [address] Care Team Providers Care Sheet Metal Welder Name Role Phone Hannah Alvarez MD Primary Care Pro vider Allergies Active Allergy Reactions Criticality Noted Date Comments Ibuprofen 12/10/2023 Penicillins Hives 01/12/2014 Medications albuterol (ProAir HFA) 108 (90 Base) MCG/ACT inhaler Inhale. 5 Active ipratropium-alb uterol (Combivent Respimat) 20-100 MCG/ACT inhaler Inhale 1 puff in the morning, at noon, in the evening, and at bedtime. Active loratadine (Claritin) 10 MG tablet TOME NIRAJ TABLETA TODOS LOS D 3 Active albuterol 0.63 MG/3ML nebulizer solution Take 0.63 mg by nebulization every 6 (six) hours if needed. Active montelukast (Singulair) 10 MG tablet take 1 tablet by oral route every day in the evening 90 tablet 3 Active levothyroxine (Synthroid, Levoxyl) 50 MCG tabletIndicatio ns:Thyroid dysfunction TOME NIRAJ TABLETA POR VIA ORAL EN LA MANANA 90 tablet 3 Active budesonide-form oterol (Symbicort) 160-4.5 MCG/ACT inhaler TOME DOS INHALACIONES POR V A ORAL DOS VECES AL D A 4 Active atorvastatin (Lipitor) 40 MG tablet TAKE 1 TABLET BY MOUTH EVERY MORNING 90 tablet 3 5 Active cholecalciferol (Vitamin D-3) 125 MCG (5000 UT) capsule Take 1 capsule (125 mcg) by mouth Once per day. 90 capsule 1 5 Active lidocaine-prilo tabby (Emla) 2.5-2.5 % cream Apply topically if needed each day for mild pain. 5 g 1 5 Active calcium carbonate (Calcium 600) 600 MG tablet Take 1 tablet (600 mg) by mouth with breakfast and with evening meal. 60 tablet 5 5 026 Active famotidine (Pepcid) 20 MG tablet TAKE 1 TABLET BY MOUTH TWICE A DAY 180 tablet 5 Active chlorhexidine (Peridex) 0.12 % solutionIndicat ions:Tongue mass AMINTA BUCHES CON 15 ML DAVID 30 SEGUNDOS Y LUEGO ESCUPA. USE DOS VECES AL ROBERT (MANANA Y TARDE) DESPUES DE CEPILLARSE LOS DIENTES. 473 mL 5 Active losartan-hydroC HLOROthiazide (Hyzaar) 50-12.5 MG tablet TAKE 1 TABLET BY MOUTH EVERY MORNING 90 tablet 3 5 Active lidocaine (Xylocaine) 2 % solution SWISH AND SPIT 15 ML EVERY 4 (FOUR) HOURS IF NEEDED FOR MUCOSITIS. 240 mL 2 5 Active naloxone (Narcan) 4 mg/0.1 mL nasal spray Administer 1 spray (4 mg) into affected nostril(s) if needed for opioid reversal. May repeat every 2-3 minutes if needed, alternating nostrils, until medical assistance becomes available. 2 each 2 5 026 Active oxyCODONE-aceta minophen (Percocet) 5-325 MG tabletIndicatio ns:Tongue cancer (HCC) Take 1 tablet by mouth every 8 (eight) hours if needed for severe pain for up to 28 days. 56 tablet 5 025 Active Problems Patient Care Coordination No te Formatting of this note migh t be different from the original. Pt presented on 10/19/24 for incisional biopsy of 3cm mass R lateral tongue. The procedure was performed uneventfully, and specimen was sent to [facility] for histopathology. Mass is highly suspicions for SCCA. The patient will be seen to review pathology on 10/26 and review surgical and XRT treatment options. 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 Female cystocele 10/10/2024 Soft tissue lesion 10/10/2024 Prediabetes 08/13/2024 Arthralgia of both hands 06/24/2024 Thrombocytopenia 10/14/2022 [...] s/P p23 x1 , s/p p20 at [facility] 07/2022 From records, covid 19 x3 and [...] s/P p23 x1 , s/p p20 at [facility] [employer] 07/2022 From records, covid 19 x3 and [...] diet and exercise,discussed healthy life style -discussed steward/stewardess tourist class referral -refusing x now referral seen before -discussed about bariatric surgery but wants to hold Assessment & Plan (08/28/2022 8:01 PM EDT): BMI 48.9 Advised pt to improve diet and exercise,discussed healthy life style -discussed steward/stewardess tourist class referral -refusing x now referral seen before [...] but states she has apt w her senior devops engineer this month and states will repeat test then -continue levothyroxine current dose Assessment & Plan (08/28/2022 7:56 PM EDT): -pt f with senior devops engineer -continue levothyroxine Cough due to MACARIO inhibitor 03/27/2017 Essential hypertension 03/27/2017 Assessment & Plan (10/14/2022 4:03 PM EDT): BP well controlled 08/2022 Microalb neg -pt complaint w BP meds -pt f w corn picker -will hold on EKG -advised to be complaint -referred to opthalmo -pd to get apt Assessment & Plan (08/28/2022 7:50 PM EDT): -pt dont took this am BP med -pt f w corn picker -will hold on EKG -advised to be [...] med studies -not able to get at [facility] where pt thinks had them done-[place] will try to check at [facility] Pulmonary hypertension ([facility]/HCC) 06/08/2013 Assessment & Plan (10/14/2022 4:19 PM EDT): Pt f w corn picker and manager gas -echocardiogram 03/2022 : EF 55-60% ,Aortic sclerosis w/o stenosis,mild thickening of anterior and posterior MV Assessment & Plan (08/28/2022 8:04 PM EDT): Pt f w corn picker and manager gas -echocardiogram 03/2022 : EF 55-60% ,Aortic sclerosis w/o stenosis,mild thickening of anterior and posterior MV -will try to get BUCK studies -if not able will discuss w pt to have test done again Graves' disease 03/06/2013 Asthma 12/17/2012 Assessment & Plan (10/14/2022 4:01 PM EDT): -currently controlled -continue care w manager gas -from last pulm note -seen in 08/05/2022 rec to continue inh And montelukast - states to be complaint w all meds Assessment & Plan (08/28/2022 7:50 PM EDT): -currently controlled -continue care w manager gas -from last pulm note -seen in 08/05/2022 rec to continue inh And montelukast -pt denies taking med-refilled today Resolved Problems Problem Noted Date Diagnosed Date Resolved Date Tongue ulcer 08/13/2024 10/29/2024 Assessment & Plan (10/10/2024 3:32 PM EDT): Not improving with nystatin, probably leukoplakia or rule out other conditions/malignancy?. I spoke with dental clinic Dr. Willams and he will see her today. 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 [address] [place] [phone] Hannah Alvarez MD Tongue cancer (HCC) (Primary Dx); Hyperlipidemia, unspecified hyperlipidemia type; Essential hypertension; Acquired hypothyroidism; Class 3 severe obesity due to excess calories without serious comorbidity with body mass index (BMI) of 45.0 to 49.9 in adult (HCC); Health care maintenance; Squamous cell carcinoma, tongue border (CMS/HCC) (HCC) 12/30/[address] [facility] [address] [place] [address] Hannah Alvarez MD 12/30/2024 Travel 12/29/[address] [facility] [address] [place] [phone] Hannah Alvarez MD chart prep 12/14/2024 Refill [facility] [address] [place] [address] Dot Blanco, RN Tongue cancer (HCC) 12/14/[address] [facility] [address] [place] [address] Hannah Alvarez MD Med Refill 11/21/20[address] [facility] [address] [place] [address] [facility] Gustavo, Physician, from Last 3 Months Immunizations Immunization Administration Dates Next Due Influenza injectable quadriv alent IIV4 with preservative 12/22/2017,12/02/2016,12/25/2015,01/18 Influenza injectable quadriv alent preservative free 01/30/2023,05/02/2020,01/26/2019 Influenza, High Dose Seasona l, Preservative Free 11/18/2024,01/05/2024 Influenza, IIV3, injectable 01/12/2014 Influenza, Split (incl. [...] Sign Reading Time Taken Comments Blood Pressure 124/74 12/30/2024 9:38 AM EDT Pulse 72 12/30/2024 9:29 AM EDT Temperature 36.3 C (97.3 F) 12/30/2024 9:29 AM EDT Respiratory Rate 20 12/30/2024 9:29 AM EDT Oxygen Saturation 96% 12/30/2024 9:29 AM EDT Inhaled Oxygen Concentration - - Weight 80.3 kg (177 lb) 12/30/2024 9:29 AM EDT Height 152.4 cm (5') 12/30/2024 9:29 AM EDT Body Mass Index 34.57 12/30/2024 9:29 AM EDT Plan of Treatment Upcoming Encounters Date Type Department Care Team (Late st Contact Info) Description 05/04/2025 9:30 AM EST Office Visit [facility] [address] [place] [phone] Hannah Alvarez MD [address] [place] [address] Health Maintenance Due Date Last Done Comments CT Colonography 1955 Dental Prophylaxis 1955 FIT DNA/Cologuard 1955 FIT 1955 FOBT 1955 Sigmoidoscopy 1955 Dental X-Ray: Bitewings 03/03/2010 03/02/2009 Dental Oral Exam 07/26/2014 01/25/2014 Dental X-Ray: Full Mouth 01/26/2017 01/25/2014, 02/13 COVID-19 Vaccine ( season) 2024 06/23/2024, 01/05/2024, 04/08/2023, Additional history exists Alcohol/Substance Use Screening 06/23/2025 06/23/2024 Depression Screening 06/23/2025 06/23/2024, 06/24/19 SDOH Screening 08/12/2025 08/12/2024 Tobacco Screening 12/30/2025 12/30/2024 Diabetes: Hemoglobin A1C 01/02/2026 025, 08/05/2024, 04/01/2023, Additional history exists Mammogram 08/12/2026 08/12/2024, 06/15, 10/17/2021, Additional history exists Lipid Panel 08/05/2029 08/05/2024, 12/15, 04/01/2023, Additional history exists Colonoscopy 11/05/2030 11/05/2020 Colorectal Cancer Screening 11/05/2030 DTaP/Tdap/Td Vaccines (3 - Td or Tdap) 08/28/2032 08/28/2022, 12/17/2012 Zoster Vaccines Completed 01/29/2021, 11/27/2020 Pneumococcal Vaccine: 50+ Years Completed 08/01/2022, 03/07/2013 Hepatitis C Screening Completed 08/28/2022, 022 RSV Patients and Patients Aged 60 years or older Completed 06/30/2024 Influenza Vaccine Completed 11/18/2024, , 01/30/2023, Additional history exists HIB Vaccines Aged Out No longer eligi [...] patient's age to complete this topic Meningococcal B Vaccine Aged Out No l onger eligible based on patient's age to complete [...] TOMOSYNTHESIS BILATERAL Routine 08/12/2024 12:34 PM EDT HEMOGLOBIN A1C Routine 08/05/2024 9:17 AM EDT Annual physical exam LIPID PANEL, STANDARD Routine 08/05/2024 9:17 AM EDT Annual physical exam HEPATITIS C AB W/REFL TO HCV RNA, QN, PCR Routine 08/28/2022 10:29 AM EDT Health care maintenance HM COLONOSCOPY Routine 11/05/2020 6:03 PM EDT PANORAMIC RADIOGRAPHIC IMAGE Routine 01/25/2014 12:00 AM EST COMPREHENSIVE ORAL EVALUATION - NEW OR ESTABLISHED PATIENT Routine 01/25/2014 12:00 AM EST INTRAORAL - COMPLETE SERIES OF RADIOGRAPHIC IMAGES Routine 03/02/2009 12:00 AM EST from Last 3 Months or Most Recently Relevant to Health Maintenance Results * BI Mammogram Screening Tomosynthesis Bilateral (08/12/2024 12:34 PM EDT) Anatomical Region Laterality Modality Breast Bilateral Mammography 08/12/2024 12:3 4 PM EDT Narrative 08/20/2024 9:12 AM EDT [facility] [address] [place] [address] Mammography Report Signed Patient: Pretty Don MR#: [id number] : 1955 Acct:[id number] Age/Sex: 68 / F ADM Date: 08/12/24 Loc: HO.MAMMO Attending Dr: Hannah Ibrahim MD Ordering Physician: Hannah Alvarez MD Re sults: 1Negative Date of Service: 08/12/24 Follow Up: 1 Year From Orig inal Mammogram Procedure(s): MM tomosynthesis screening BI Accession Number(s): [id number] cc: Hannah Alvarez MD EXAMINATION: MM SCREENING [...] 08/20/24 0909 DD/ 1234 TD/TT: 08/12/24 1249 Clerical And Office Support Workers: Procedure Note Donotuseinterpreter, Image - 08/20/2024 [facility] [address] [place] [address] Dr. [place], JOSE [address] Mammography Report Signed Patient: Pretty DonMR#: [id number] : 1955cct:[id number] Age/Sex: 68 / FADM Date: 08/12/24 Loc: HO.MAMMO Attending Dr: Hannah Ibrahim MD Ordering Physician: Hannah Alvarez sults: 1Negative Date of Service: 08/12/24Follow Up: 1 Year From Orig ina Mammogram Procedure(s): MM tomosynthesis screening BI Accession Number(s): [id number] cc: Hannah Alvarez MD EXAMINATION: MM SCREENING [...] 08/20/24 0909 DD/ 1234 TD/TT: 08/12/24 1249 Clerical And Office Support Workers: us Hannah Ibrahim MD IMG BI PROCEDURES Edited Result - Final * (ABNORMAL) Lipid Panel, Standard (08/05/2024 9:17 AM EDT) Triglycerides 86 <150 mg/dL [facility] Comment:Desirable Triglyceri de: less than 150 mg/dLBorderline High Triglyceride 150-199 mg/dLHigh Triglyceride: 200-499 mg/dLVery High Triglyceride: greater than or equal to 5OO mg/dL Cholesterol 194 <200 mg/dL [facility] Comment:Desirable Cholestero l: less than 200 mg/dLBorderline High Cholesterol: 200-239 mg/dLHigh Cholesterol: greater than 239 mg/dL LDL Cholesterol Calculated 124(H) <100 mg/dL [facility] Comment:Desirable LDL: less than 100 mg/dLNear Optimal/Above Optimal LDL: 110- 129 mg/dLBorderline High LDL: 130-159 mg/dLHigh LDL: 160-189 mg/dLVery High LDL: greater than or equal to 190 mg/dL HDL Cholesterol 53 >40 mg/dL [facility] Comment:Desirable HDL: great er than 40 mg/dL Note: This HDL assay may give artificially low results in patients with liver disease. Blood Venous blood specimen / Unknown 08/05/2024 9:17 AM EDT 08/05/2024 11:03 AM EDT Hannah Ibrhaim MD LAB BLOOD ORDERAB LES Final Result [facility] [address] [place] [phone] * Hepatitis C Antibody with Reflex to HCV, RNA, Quantitative, Real-Time PCR (08/28/2022 10:29 AM EDT) Hepatitis C Antibody NON-REACT DELMIS NON-REACT DELMIS [facility] [place] [facility] Index 0.33 <1.00 [facility] [place] [facility] Comment: HCV antibody was non-reactive. There is no laboratory evidence of HCV infection. In most cases, no further action is required. However, if recent HCV exposure is suspected, a test for HCV RNA (test code 31792) is suggested. For additional information please refer to http://education.WeSwap.com.Roadstruck/faq/FEI27s0 (This link is being provided for informational/ educational purposes only.) Blood Venous blood specimen / Unknown 08/28/2022 10:29 AM EDT 08/28/2022 10:30 AM EDT Narrative [facility] - 09/02/2022 2:12 AM EDT FASTING:YES PATIENT REFUSED SOME TESTING; PATIENT ENCOURAGED TO RETURN. FASTING: YES Hannah Ibrahim MD LAB BLOOD ORDERAB LES Final Result [facility] [address], [place] [address] [facility] [place] [facility] [address] [place] [address] * Colonoscopy (11/05/2020 6:03 PM EDT) us Historical Provider HEALTH MAINTENANCE Final Result from Last 3 Months or Most Recently Relevant to Health Maintenance Insurance [facility] M[employer] OPTIONS (O D-SNP) [facility] Advance Directives Documents on File Type Date Recorded Patient Park Guide Expl anation Power of Lay Out Inspector 12/12/2024 Health Car e Proxy Care Teams Sheet Metal Welder Relationship Specialty Start Date End Date Hannah Alvarez MD [address] [phone] PCP - General Internal Medicine 06/27/22
--- OUTSIDE RECORDS SUMMARY | 2025-02-19 07:46 | XMS_ITS | Encounter Summary ---
Author Organization [facility] Address [address] [facility] [address] [place] [phone] Phone Care Team Providers Care Lmsw Name Role Phone Unavailable Primary Care Provider Unavailabl e Encounter Details Date Type Department Care Team (Late st Contact Info) Description 10/12/2019 Ancillary Orders [facility] [address] [place] [address] [place] [address] Ferdinand Hernandez DO [address] [place] [address] Palpitations Social History Tobacco Use Types Packs/Day [...] encounter Results * Holter Monitor 24 Hours (10/12/2019 10:04 AM EDT) Anatomical Region Laterality Modality Heart Other Narrative 10/13/2019 8:02 AM EDT 24-hour monitor: The baseline rhythm is sinus with a minimum heart rate of 50, maximum 111, average 73 bpm. The longest pause duration is 2.14 seconds at 6 AM, possibly during hours of sleep, and this is a compensatory pause after a PAC. There are 19 PACs. There are 4 PACs. There is no diary returned. There is 1 patient event marker during sinus rhythm without ectopy. Impression: Normal 24-hour monitor. Single patient event marker during sinus rhythm without ectopy. No diary submitted. Procedure Note Jamar Diaz MD - 10/13/2019 24-hour monitor: The baseline rhythm is sinus with a minimum heart rate of50, maximum 111, average 73 bpm. The longest pause duration is 2.14seconds at 6 AM, possibly during hours of sleep, and this is acompensatory pause after a PAC. There are 19 PACs. There are 4 PACs.There is no diary returned. There is 1 patient event marker during sinusrhythm without ectopy. Impression: Normal 24-hour monitor. Single patient event marker duringsinus rhythm without ectopy. No diary submitted. Ferdinand Hernandez DO [facility] ORDERABLE S Final Result documented in this encounter Visit Diagnoses Diagnosis Palpitations Palpitations documented in this encounter Additional Source Comments The information contained in this document represents components of the legal health record. It is not the complete legal health record.[facility]
--- OUTSIDE RECORDS SUMMARY | 2025-02-19 07:46 | XMS_ITS | Encounter Summary ---
Author Organization [employer] Address [address] [facility] 7t [place] [address] Care Team Providers Care Hospice Patient Care Secretary Name Role Phone Hannah Alvarez MD Primary Care Pro vider Encounter Details Date Type Department Care Team (Late st Contact Info) Description 10/21/2024 Orders Only [facility] [address] [place] [address] ProviderMaddie MD Social History Tobacco Use Types [...] the past 12 months, has t he [employer] gas, oil or water [email or web address] threatened to shut off services in your [...] Description 05/04/2025 9:30 AM EST Office Visit [facility] [address] [place] [address] Hannah Alvarez MD [address] [place] [address] documented as of this encounter Procedures Procedure Name Priority Date/Time Associated Diagnosis Comments SURGICAL PATHOLOGY Routine 10/19/2024 11:16 AM EDT documented in this encounter Results * Surgical Pathology (10/19/2024 11:16 AM EDT) Historical Provider LAB PATHOLOGY ORDERABLES Final Result documented in this encounter Visit Diagnoses Not on filedocumented in this encounter Additional Health Concerns Assessment Noted Time PHQ-9 Depression Total Score: 0 06/24/19 25 10:34 AM EDT documented as of this encounter Care Teams Hospice Patient Care Secretary Relationship Specialty Start Date End Date Hannah Alvarez MD [address] [place] [address] [phone] PCP - General Internal Medicine 06/27/22 documented as of this encounter
--- OUTSIDE RECORDS SUMMARY | 2025-02-19 07:46 | XMS_ITS | Data Portability ---
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 Outside incisional Bx was performed on 10/19/24 by [facility]. No DOI reported on path. We discussed treatment paradigm including chemoradiotherapy versus [...] would do this would be either in [place] or [place]. I would like them to also get set up with medical and radiation oncology as well in the meantime in case they choose to undergo that route. 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 Outside incisional Bx was performed on 10/19/24 by [facility]. No DOI reported on path. It looks like she has a single right level III LN thats enlarged <3cm on CT neck and no obvious chest nodules, making her [id number] but will wait for final rads read. [...] would do this would be either in [place] or [place]. I would like them to also get [...] Details Last Modified Time Details Appointments None recorded. Lab bun/creatin ine, ratio, serum 2024 025 [email or web address] [facility] (Centralized Electronic Ordering - All Locations), Patient Can Go To The Location Of Their Choice, [id number] 5 10:38:49 Referral oncologist referral 2024 025 [email or web address] [facility] (Div Of Hematology Oncology), [address] [facility] 2[address] Floor, [place], [address], 11:26:26 radiation therapy referral 2024 025 [email or web address] Judi Carmichael MD, [address], [place], [address], 5 11:24:50 head and neck referral 2024 025 [email or web address] Sonido Loius MD, [address] [facility], [place], [address], 08:48:59 Procedures None recorded. Surgeries None recorded. Imaging CT, neck, soft tissue, w/ contrast - labs at [facility] 2024 025 [email or web address] [facility], Critical access hospital[facility], [address], [address], 15:46:44 PET-CT, skull base to mid-thigh scan - Right lateral tonguge [facility] 2024 025 [email or web address] [facility], Critical access hospital0 [address] , [place] [address], [place], [address], 5 10:15:29 CT, chest, w/wo contrast 2024 025 [email or web address] [facility], [address] [facility], [place] [address], [place], [address], 15:47:03 Medication Orders None recorded. Patient TargetsNo targets recorded. Patient InstructionsNo instructions recorded. Reason for Referral Referring Physician: Germán Higginbotham, Otolaryngology, Encounter Date: 11/09/2024 Radiation Therapy Referral f or Squamous cell carcinoma of mouth Referring Physician: Germán Higginbotham Otolaryngology, Encounter Date: 11/09/2024 Head And Neck Referral for S quamous cell carcinoma of mouth Referring Physician: Germán Higginbotham Otolaryngology, Encounter Date: 11/09/2024 Results Created Date Observation Date Name Description Value Unit Range Abnormal Flag Note LastModifiedBy Organization Detail LastModifiedTime 12/09/1912/06/2024 CT, neck, soft tissu e, w/ contr ast No observ ation record ed. [email or web address] [facility] [address], [address], 12/08/2024 16:48:34 12/09/19 25 12/06/2024 CT, chest , w/ contr ast No observ ation record ed. [email or web address] [facility] [address] [facility] [address], [place], [address], 12/08/2024 16:49:22 12/09/1912/08/2024 PET-C T, skull base to mid-t high scan No observ ation record ed. [email or web address] [facility] [address] [facility] [address], [place], [address], 12/14/2024 12:10:01 Result Notes None recorded. 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 Procedures Surgical History Date Name Laterality Status Provider Name and Address Organization Details Recorded Time 11/09/2024 FOL_normal _DHL completed Germán Higginbotham [address] [place], [address], [facility] - [facility] 11/09/2024 08:20:50 Imaging Results None recorded. Procedure Notes None recorded. Medical Equipment None Reported. Allergies Allergen ID Allergen Name Allergen Category Reaction Reaction Severity Criticality Documentation Date Start Date Code Code System Note Provider Name and Address Organization Details Recorded Time 034724 ibuprofen medicatio n Not available Not available Not available 02/06/2025 5640 RxNorm Not Available [employer] 04:42:37 326507 Product containin g penicilli n (product) medicatio n Not available Not available Not available 02/06/2025 38372 8001 SNOMED Not Available [employer] 04:42:37 510440 acetamino phen / oxycodone medicatio n Not available Not available Not available 02/06/2025 62767 3 RxNorm Not Available [employer] 04:42:37 Medications Name Sig Start Date Stop Date Status Note LastModified by Organization Details LastModified Time atorvastati n 40 mg tablet TOME 1 TABLETA POR V A ORAL TODOS LOS D EN LA JOSE FE active Not Available Not Available No [...] t Available Vitals Date Recorded Body height Body mass index (BMI) Body weight Provider Name and Address Organization Details Last Updated DateTime 11/09/2024 152.4 cm 35.2 kg/m2 30581.63 g Cyndie Joi [place] - [facility] 11/09/2024 10:35:40 Date Recorded Body height Provider Name an d Address Organization Details Last Updated DateTime 12/07/2024 152.4 cm TAMMY MERCY [place] [facility] 12/07/2024 09:50:49 Social History None recorded. Functional [...] ICD10 Code Diagnosis IMO Codes Diagnosis Note [id number] Germán Higginbotham DO [facility] [address] [address] 11/09/2024 09:20:18 11/09/2024 11:03:31 Squamous cell carcinoma of mouth 428203005 C06.9 92079626 Mass of he ad and/or neck 623365629 R22.1 Pre-surgery testing 1104 52352 Z01.812 [id number] Germán Higginbotham DO [facility] [address] [address] 12/07/2024 09:26:03 12/07/2024 10:22:27 Squamous cell carcinoma of mouth 970304289 C06.9 74101712 Mass of he ad and/or neck 248541106 R22.1 Health Concerns Section Related Observation LastModified by Organization Detai ls LastModified Time None Recorded Concern Status LastModified by Organization Details LastModified Time None Recorded Advance Directives Directive None Recorded Payers Insurance Date Sequence Insurance Name Policy Number Policy Davila Covered Member ID Davila Member ID Guarantor Name 02/03/2025 1 [facility] - DOS ON OR AFTER 2022 - MEDICARE ADVANTAGE [place] (MEDICARE REPLACEMENT/ADV ANTAGE - PPO) Pretty Arian [id number] Pretty Arian Notes Date Note Type Note Provider Name and Address Organization Details Recorded Time 11/09/2024 text/html ROS as noted in the HPI Ref: Kalpana Olsen is a 68-year-old female who presents today with a history of 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 Outside incisional Bx was performed on 10/19/24 by [facility]. The pathology report was reviewed as well which listed an incisional biopsy with 4 mm of invasive squamous cell carcinoma, no depth of invasion was included. Germán Higginbotham, DO [address] [facility],[place] [address], [place], [address], [place] - [facility] 11/09/2024 10:57:16 12/07/2024 text/html ROS as noted in the HPI Interval history: She was able to obtain her CT neck and chest 12/06/24 at [facility]. The final read is currently pending. [...] seen head and neck team yet in [place]. Has not been reached out to yet. Onc: Dr. Hector LORENZO, 11/25/24Agrees [id number] and still pending CT/PET results - Surgery with Concurrent Neoadjuvant or adjuvant Pembrolizumab per Keynote-689 trial vs CCRT. 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 Outside incisional Bx was performed on 10/19/24 by [facility]. No DOI reported on path. Germán Higginbotham, DO [address] [facility],[place] [address], [place], [address], [place] - [facility] 12/07/2024 10:18:55 OBGyn Episode No OBEpisode recorded.
--- OUTSIDE RECORDS SUMMARY | 2025-02-19 07:46 | XMS_ITS | Encounter Summary ---
Author Organization [employer] Address [address] [facility] 7 [place] [address] Care Team Providers Care Lithopress Operator Name Role Phone Hannah Alvarez MD Primary Care Pro vider Reason for Visit * Reason Comments Med Refill Encounter Details Date Type Department Care Team (Late st Contact Info) Description 01/11/2023 Refill [facility] [address] [place] [address] Hannah Alvarez MD [address] [place] [address] Thyroid dysfunction Social History Tobacco Use Types [...] Description 05/04/2025 9:30 AM EST Office Visit [facility] [address] [place] [address] [phone] Hannah Alvarez MD [address] [place] [address] documented as of this encounter Visit Diagnoses Diagnosis Thyroid dysfunction Unspecified disorder of thyroid documented in this encounter Additional Health Concerns Assessment Noted Time PHQ-9 Depression Total Score: 0 08/29/19 9:02 AM EDT documented as of this encounter Care Teams Lithopress Operator Relationship Specialty Start Date End Date Hannah Alvarez MD [address] [place] [address] [phone] PCP - General Internal Medicine 06/27/22 documented as of this encounter
--- OUTSIDE RECORDS SUMMARY | 2025-02-19 07:46 | XMS_ITS | Encounter Summary ---
Author Organization [employer] Address [address] [facility] 7 [place] [address] Care Team Providers Care Diet Counselor Name Role Phone Hannah Alvarez MD Primary Care Pro vider Reason for Visit * Reason Comments Med Change Request Encounter Details Date Type Department Care Team ([facility] st Contact Info) Description 03/25/2023 Refill [facility] [address] [place] [address] Hannah Alvarez MD [address] [place] [address] Social History Tobacco Use Types Packs/Day Years [...] Description 05/04/2025 9:30 AM EST Office Visit [facility] [address] [place] [address] [phone] Hannah Alvarez MD [address] [place] [address] documented as of this encounter Visit Diagnoses Not on filedocumented in this encounter Additional Health Concerns Assessment Noted Time PHQ-9 Depression Total Score: 0 08/29/19 9:02 AM EDT documented as of this encounter Care Teams Diet Counselor Relationship Specialty Start Date End Date Hannah Alvarez MD [address] [place] [address] [phone] PCP - General Internal Medicine 06/27/22 documented as of this encounter
--- OUTSIDE RECORDS SUMMARY | 2025-02-19 07:46 | XMS_ITS | Encounter Summary ---
Author Organization [employer] Address [address] [facility] 7t [place] [address] Care Team Providers Care Yarding Engineer Name Role Phone Hannah Alvarez MD Primary Care Pro vider Encounter Details Date Type Department Care Team ([facility] st Contact Info) Description 03/06/2024 Orders Only [facility] [address] [place] [address] ProviderMaddie MD Social History Tobacco Use Types [...] [facility] [address] [place] [address] Hannah Alvarez MD [address] [place] [address] documented as of this encounter Procedures Procedure [...] documented as of this encounter Care Teams Yarding Engineer Relationship Specialty Start Date End Date Hannah Alvarez MD [address] [place] [address] PCP - General Internal Medicine 06/27/22 documented as of this encounter
--- OUTSIDE RECORDS SUMMARY | 2025-02-19 07:46 | XMS_ITS | Clinical Summary ---
Author Organization [employer] [facility] Address [address] [place] [address] Phone Care Team Providers Care Second Crusher Name Role Phone Unavailable Primary Care Provider Unavailabl e Social History Tobacco Use Types Packs/Day Years Used Date Smoking Tobacco: Never Assessed Education Answer Date Recorded Are you interested in more education? Not on mario e 07/11/2022 Are you concerned about learning? Not on file 07/11/2022 No 07/11/2022 No 07/11/2022 Digital Access Answer Date Recorded No 08/11/2022 No 08/11/2022 No 08/11/2022 Reliable internet access at home? Not on file 08/11/2022 Device with a working camera? Not on file Comments Unknown Sex and Gender Information Value Date Recorded Sex Assigned at Not on file Legal Sex Female 9:52 PM EDT Gender Identity Not on file Sexual Orientation Not on file Plan of Treatment Not on file Medical Devices Not on file Insurance [facility] MEDIC[facility] PART A & B [place] & [address] [place], [place] [address]HEALTH MEDICARE PART A & B [place] PART [place] & [place] & B HEALTH MEDICARE PART A & B [facility] MED[employer] PART A & B Additional Source Comments The information contained in this document represents components of the legal health record. It is not the complete legal health record.[facility]
[2025-02-19 09:02] VITALS: BP 110/42; PULSE 63; RESP 16; TEMP 36.8; O2SAT 96
[2025-02-19 09:04] VITALS: BP 110/42; PULSE 63; RESP 16; TEMP 36.8; O2SAT 96
== END 2025-02-19 09:04 | disposition home or self-care (01) ==
PROVIDERS: Emergency Provider Emergency Medicine; PCP Student in an Organized Health Care Education/Training Program
DX: Z43.0 Encounter for attention to tracheostomy (principal); C10.9 Malignant neoplasm of oropharynx, unspecified; I10 Essential (primary) hypertension; E78.5 Hyperlipidemia, unspecified; J45.909 Unspecified asthma, uncomplicated
CPT/HCPCS: 71045; 99283; 99284

== ENCOUNTER → 2025-02-19 07:35 | Outpatient (BNV) | payer OTHER, SELFPAY | PROVIDERS: Emergency Provider Emergency Medicine; PCP Student in an Organized Health Care Education/Training Program; Visit Provider Specialist | DX: Z93.0 Tracheostomy status (principal) | CPT/HCPCS: 71045 ==